=== PATIENT | female | born 1965 ===

== ENCOUNTER 2024-09-29 10:21 | Outpatient (AMB) | payer OTHER, SELFPAY ==
--- OUTSIDE RECORDS SUMMARY | 2023-09-02 05:30 | XMS_ITS ---
Author Organization [facility] Address [address] [place] [address] Care Team Providers Care Rug Cutter Name Role Phone HARISH AGUILAR Unavailable [phone] Allergies Allergen (clinical drug ingredient) Drug/Non Drug Allergy documented on EMR Reaction Allergy Type Onset Date Status Substance with sulfonamide structure and antibacterial mechanism of action (substance) sulpha (uncoded) unknown Allergy Active ciprofloxacin Cipro unknown Drug Allergy Act ashlie nitrofurantoin Macrodantin seeing double Drug Allergy Active REASON FOR VISIT Pt is a 57 y/o NIDDM female who presents to the office today with a concern of a retained foreign body in the right foot. She states that she stepped on fiberglass about 20 years ago. She was treatedat the time and hasnt had any problems until recently when she noticed a painful bump on the ball of the right foot which has started to hurt when she walks. She denies any new injury or increase in activity. There has been no recent treatment. She has no additional pedal concerns today. She deniesany burning, tingling or numbness in her feet. Medications Medication SIG (Take, Route, Fr equency, Duration) Notes Start Date End Date Status Pravastatin Sodium A ctive Singulair Active metFORMIN HCl Active Trulicity Active Social History Tobacco Use: Social History Observation Description Date Details (start date - stop date) Never Smoker NA - NA Tobacco Use/Smoking Question Answer Notes Are you a nonsmoker Problems Problem Type SNOMED Code ICD Code Onset Dates Problem Status W/U Status Risk Notes Problem Congenital valgus deformity of foot (disorder) (64413671) Pes planovalgus (Q66.51) Active confirmed Problem Congenital valgus deformity of foot (disorder) (47480118) Pes planovalgus (Q66.52) Active confirmed Problem Type II diabetes mellitus without complication (276351332) Type 2 diabetes mellitus without complications (E11.9) Active confirmed Encounters Encounter Location Date Provider Diagnosis [facility] [address] [place] [address] 09/02/2023 HARISH AGUILAR Foot pain, right M79 .671 ; Pes planovalgus Q66.51 ; Pes planovalgus Q66.52 and Type 2 diabetes mellitus without complications E11.9 Assessments Encounter Date Diagnosis (ICD Code) Assessment Notes Treatment Notes Treatment Clinical Notes Section Notes 09/02/2023 Foot pain, right (ICD-10 - M79.671) Pt noted relief with sharp debridement of the lesion today. She is reassured that there is no retained foreign body present on exam today. Aperture padding applied. 09/02/2023 Pes planovalgus (ICD-10 - Q66.51) Pt evaluated and the chart is reviewed. The etiology of IPK's is reviewed as well as how her foot structure is contributing to it's development. We reviewed the benefits of realignment with an orthotic as well as the benefit of using a properly fitted supportive shoe/sneaker. Pt has no restriction on activity and may participate as tolerated. I recommend getting her feet measured and into new sneakers before we fit her for an orthotic as she is unsure of her acutal size. She notes her questions to have been addressed to her satisfaction during exam today. 09/02/2023 Pes planovalgus (ICD-10 - Q66.52) as noted above 09/02/2023 Type 2 diabetes mellitus without complications (ICD-10 - E11.9) Diabetic foot care and prevention are reviewed 09/02/2023 Other A total of 30 minutes was spent in both direct and indirect contact with the patient today including evaluating, counseling and developing a podiatric treatment plan as well as indirect management including review of records, coordination of care as needed and documenting in the electronic health record. Greater than 50% of the time was focused on providing counseling and education. Plan Of Treatment Treatment Notes Assessment Notes Foot pain, right Pt noted relief with sharp debridement of the lesion today. She is reassured that there is no retained foreign body present on exam today. Aperture padding applied. Pes planovalgus Pt evaluated and the chart is reviewed. The etiology of IPK's is reviewed as well as how her foot structure is contributing to it's development. We reviewed the benefits of realignment with an orthotic as well as the benefit of using a properly fitted supportive shoe/sneaker. Pt has no restriction on activity and may participate as tolerated. I recommend getting her feet measured and into new sneakers before we fit her for an orthotic as she is unsure of her acutal size. She notes her questions to have been addressed to her satisfaction during exam today. Pes planovalgus as noted above Type 2 diabetes mellitus wit hout complications Diabetic foot care and prevention are reviewed Other A total of 30 minute s was spent in both direct and indirect contact with the patient today including evaluating, counseling and developing a podiatric treatment plan as well as indirect management including review of records, coordination of care as needed and documenting in the electronic health record. Greater than 50% of the time was focused on providing counseling and education. Next Appt Details Follow Up: prn, Reason: Progress Notes * MIKEY MORALESHDOB:1965 (58 yo F)Acc No.[id number]:09/02/2023 Patient: BAILEY GOLDEN Provider: Avery Aguilar DPM :1965 A ge:57 Y S ex:Female Date:09/02/2023 Address:[address] [place] [address] Subjective: * Chief Complaints: * 1 . Pt is a 57 y/o NIDDM female who presents to the office today with a concern of a retained foreign body in the right foot. She states that she stepped on fiberglass about 20 years ago. She was treated at the time and hasnt had any problems until recently when she noticed a painful bump on the ball of the right foot which has started to hurt when she walks. She denies any new injury or increase in activity. There has been no recent treatment. She has no additional pedal concerns today. She denies any burning, tingling or numbness in her feet.. * HPI: D epression Screening: PHQ-2 (2015 Edition) L ittle interest or pleasure in doing things??Not at all F eeling down, depressed, or hopeless? N ot at all T otal Score 0 * ROS: A ll Other Systems: Review of Systems (ROS) S ee PM for details. ? * Medical History: D iabetes mellitus, Hyperlipidemia. * Surgical History: g allbladder , tonsillectomy , hernia . * Hospitalization/Major Diagno stic Procedure: D enies Past Hospitalization. * Social History: T obacco Use: T obacco Use/Smoking A re you a n onsmoker * Medications: T aking Trulicity , Taking metFORMIN HCl , Taking Singulair , Taking Pravastatin Sodium , Medication List reviewed and reconciled with the patient * Allergies: C ipro: unknown - Allergy - Criticality Unknown, Macrodantin: seeing double - Allergy - Criticality Unknown, sulpha: unknown - Allergy - Criticality Unknown. Objective: * Vitals: H bA1c: 6.8, Pain scale:21-10. * Examination: G eneral Examination: GENERAL APPEARANCE: p leasant, well nourished, in no acute distress. FOOT EXAM: L ower Extremity Neurological Exam performed:?Yes F ootwear Evaluation performed: Y es D ate 0 09/02/2023 S ensory testing performed: s ensations normal S ensory and motor testing performed: s trength normal P edal pulse taking performed: 2 + V isual exam of foot performed: Y es V ascular: DORSALIS PEDIS PULSE: 2 /4, bilaterally. POSTERIOR TIBIAL PULSE: 2 /4, bilaterally. CAPILLARY REFILL: i nstantaneous. TEMPERATURE GRADIENT: w ithin normal limits, bilaterally.? HAIR GROWTH: ( +) pedal hair growth B/L. ? N eurologic: MUSCLE POWER: 5 /5, bilaterally. TINELS SIGN: n egative with percussion of the medial and intermediate dorsal cutaneous nerves and tarsal tunnel B/L. VILLEAUX SIGN: n egative with percussion of intermediate and medial dorsal cutaneous nerves and tarsal tunnel, B/L. MULDERS SIGN: n egative with dorsal and lateral compression of interspaces 1-4 B/L. VIBRATORY: i ntact at the 1st MPJ B/L. SHARP SENSATION: l ight touch, intact to all points bilaterally with 5.07 monofilament. D ermatologic: SKIN FINDINGS: N o pedal EEE noted; No open areas or SOI appreciated.. HYPERKERATOSIS: ( +) hard, focal keratotic lesion noted submt 2 on the right foot. There is a central depression in the lesion which is painful with pressure. No associated fluctuance or SOI. Tissues remain intact throughout debridement with no underlying ulceration or abscess noted. I do not appreciate any sign of foreign body or verrucous tissue.. NAIL PATHOLOGY: N ails are unremarkable x 10. ? O rthopedic: GAIT ABNORMALITY: Caleb randle is WNL. FOOT MORPHOLOGY: W eight bearing exam with collapse through the MLA B/L and increased rearfoot valgus rotation B/L. JOINT RANGE OF MOTION: N o pain or crepitus with passive ROM through the ankle, subtalar or MPJ's 1-5 B/L. PAIN ELICITED WITH PALPATION OF: ( +) pain with pressure right submt 2 as noted.. R outine Foot Care: Footwear exam P t is wearing a sandal today with little to no support. Assessment: * Assessment: 1. F oot pain, right - M79.671 (Primary) 2 . P es planovalgus - Q66.51 3 . P es planovalgus - Q66.52 4 . T ype 2 diabetes mellitus without complications - E11.9 Plan: * Treatment: 2. P es planovalgus Notes: Pt evaluated and the chart is reviewed. The etiology of IPK's is reviewed as well as how her foot structure is contributing to it's development. We reviewed the benefits of realignment with an orthotic as well as the benefit of using a properly fitted supportive shoe/sneaker. Pt has no restriction on activity and may participate as tolerated. I recommend getting her feet measured and into new sneakers before we fit her for an orthotic as she is unsure of her acutal size. She notes her questions to have been addressed to her satisfaction during exam today. 3. P es planovalgus Notes: as noted above 4. T ype 2 diabetes mellitus without complications Notes: Diabetic foot care and prevention are reviewed 5. O thers Notes: A total of 30 minutes was spent in both direct and indirect contact with the patient today including evaluating, counseling and developing a podiatric treatment plan as well as indirect management including review of records, coordination of care as needed and documenting in the electronic health record. Greater than 50% of the time was focused on providing counseling and education. ? * Procedure Codes: G 8510 NEG SCR D PT NOT ELIG F/U/PLN DOC, G9903 Pt scrn tbco id as non user, 3288F FALL RISK ASSESSMENT DOCD * Preventive Medicine: Diabetic counseling: F oot care and prevention D iabetic footcare and prevention are reviewed with the patient. They are cautioned against barefoot walking and encouraged to perform nightly foot checks. No cream, lotion or ointment to be applied in between the toes. Proper foot wear and shoe fit are reviewed. They are encouraged to keep feet clean and dry. Contact the office should any signs of infection, ulceration or other concerning skin changes present. Pt indicates understanding of instructions and notes all questions to have been answered to their satisfaction today. ELGIN Screening: F alls : Screening for future fall risk Have you had two or more falls in the past year? N o Have you had any falls with injury in the past year? N o Assessment Performed: y es Date: 09/02/2023 Screenings: F ALL RISK SCREENING Fall Risk Assessment: N o falls in the past year Assessment: P erformed Balance-gait assessment: O bserved transfer and walking * Follow Up: p rn * Billing Information: * Visit Code: 39342 Office Visit, New Pt., Level 3. * Procedure Codes: G8510 NEG SCR D PT NOT ELIG F/U/PLN DOC. G9903 Pt scrn tbco id as non user. 3288F FALL RISK ASSESSMENT DOCD. * Electronic signature of BEBE AGUILAR DPM on 09/29/2024 at 11:16 AM EDT Sign off status: Pending * Provider: Avery Aguilar DPM Date: 09/02/2023 Generated for Mary mcfarlane/Kita/eTransmitting on: 09/29/2024 11:16 AM EDT History and Physical Notes * HPI (History of Present Illness) Category Sub-Category Detail Notes Category Not es Depression Screening PHQ-2 (2015 Edition) Little interest or pleasure in doing things?: Not at all Feeling down, depressed, or hopeless?: N ot at all Total Score: 0 Examination Category Sub-Category Detail Notes Category Not es Dermatologic SKIN FINDINGS: No pedal EEE not ed; No open areas or SOI appreciated. NAIL PATHOLOGY: Nails are unremarkab le x 10 HYPERKERATOSIS: (+) hard, focal bandar totic lesion noted submt 2 on the right foot. There is a central depression in the lesion which is painful with pressure. No associated fluctuance or SOI. Tissues remain intact throughout debridement with no underlying ulceration or abscess noted. I do not appreciate any sign of foreign body or verrucous tissue. Neurologic MUSCLE POWER: 5/5, bilaterally SHARP SENSATION: light touch, intact to all points bilaterally with 5.07 monofilament TINELS SIGN: negative with percus marybel of the medial and intermediate dorsal cutaneous nerves and tarsal tunnel B/L VILLEAUX SIGN: negative with percus marybel of intermediate and medial dorsal cutaneous nerves and tarsal tunnel, B/L MULDERS SIGN: negative with dorsal and lateral compression of interspaces 1-4 B/L VIBRATORY: intact at the 1st MP J B/L Orthopedic GAIT ABNORMALITY: Gait is WNL FOOT MORPHOLOGY: Weight bearing exam with collapse through the MLA B/L and increased rearfoot valgus rotation B/L JOINT RANGE OF MOTION: No pain or crepit us with passive ROM through the ankle, subtalar or MPJ's 1-5 B/L PAIN ELICITED WITH PALPATION OF: (+) lamberto n with pressure right submt 2 as noted. Vascular DORSALIS PEDIS PULSE: 2/4, bilaterally CAPILLARY REFILL: instantaneous TEMPERATURE GRADIENT: within normal limi ts, bilaterally POSTERIOR TIBIAL PULSE: 2/4, bilaterally HAIR GROWTH: (+) pedal hair growt h B/L General Examination GENERAL APPEARANCE: pleasant , well nourished, in no acute distress FOOT EXAM: Lower Extremity Neurological Exa m performed:: Yes Footwear Evaluation performed:: Yes Date: 09/02/2023 Sensory testing performed:: sensations n ormal Sensory and motor testing performed:: [facility] normal Pedal pulse taking performed:: 2+ Visual exam of foot performed:: Yes Routine Foot Care Footwear exam Pt is wearing a sandal today with little to no support
--- OUTSIDE RECORDS SUMMARY | 2023-12-18 08:15 | XMS_ITS ---
Author Organization [facility] [address] Address [address] [place] [address] Care Team Providers Care Document Management Consultant Name Role Phone URSZULA LONG Unavailable [phone] Encounters Encounter Location Date Provider Diagnosis [facility] [address] [place] [address] 12/18/2023 URSZULA LONG Plan Of Treatment No Information Progress Notes * Hermila HARDYhDOB:1965 (58 yo F)Acc No.[id number]:12/18/2023 CPE Patient: Adry GOLDEN Provider: Lanie LONG MD :1965 A ge:58 Y S ex:Female Date:12/18/2023 [facility] Subjective: * Chief Complaints: * * Medical History: Objective: * Vitals: Assessment: Plan: * Treatment: * Images: Billing Information: * Visit Code: * Procedure Codes: Care Plan Details* * Electronic signature of WILFRED LONG on 09/29/2024 at 11:16 AM EDT Sign off status: Pending * Provider: Lanie LONG MD Date: 1 Generated for Mary mcfarlane/Kita/eTjasmynsmitting on: 0 09/29/2024 11:16 AM EDT
--- NOTE | 2024-09-29 10:41 | A.OFFVIS_ITS ---
Vital Signs 09/29/24 10:43 Height 5 ft 5 in Weight 162 lb 8 oz BMI 27.0 BP 114/68 Blood Pressure Location Rt brachial Position Sitting Pulse 68 Pulse Source Pulse Oximeter Pulse Oximetry (%) 97 Oxygen Delivery Method Room Air Intake Visit Reasons: Pulmonary Hypertension Allergies ciprofloxacin Allergy (Intermediate, Verified 09/29/24 10:50) Unknown nitrofurantoin (From Macrobid) Allergy (Intermediate, Verified 09/29/24 10:50) Unknown Sulfa (Sulfonamide Antibiotics) Allergy (Intermediate, Verified 09/29/24 10:48) Photosensitivity HPI HPI Pulmonary Hypertension: Details: Shila is a pleasant 58-year-old female, former 10 pack year smoker, with underlying asthma, DMII. She was referred by PCP for pulmonary evaluation after chest CT revealed mildly enlarged pulmonary artery suggestive of pulmonary hypertension. Recent imaging studies, including a CT scan 2024, revealed mild dilation of the pulmonary artery and mild cardiomegaly. The patient has mild pulmonary scarring, likely due to past infections and environmental exposures.The echocardiogram was unable to accurately measure pulmonary artery pressures otherwise unremarkable. She denies prior h/o CTD, PE, MANUELA symptoms or ILD. The patient has a history of bronchitis, pneumonia, and asthma, which she attributes to growing up in a smoking household. Asthma diagnosed in childhood, exacerbated by exercise and cold air, however minimal symptoms and continues to live an active lifestyle not limited by respiratory symptoms. She has ICS/LABA and albuterol however does not use consistently. At this time denies any respiratory symptoms. She smoked from the age of 12 to 23 but has not smoked since. She has a family history of heart disease and vascular issues, particularly in her father and reports mother with sarcoidosis. [facility], [facility] Social History (Updated 09/29/24 @ 10:46 by Zaida Avendaño CMA) Patient Tobacco Use Status: Former Tobacco user Review of Systems Const Denies chills, Denies excessive sweating, Denies fever(s), Denies headache(s) and Denies night sweats Eyes Denies dry eyes, Denies irritation and Denies itchy eyes ENT Reports Normal hearing present, Denies headache(s), Denies nasal congestion, Denies nasal discharge, Denies post nasal drip and Denies sore throat Card Denies chest pain, Denies chest pain at rest, Denies chest pain with activity, Denies claudication, Denies leg edema, Denies dyspnea, Denies dyspnea on exertion, Denies orthopnea and Denies paroxysmal nocturnal dyspnea Resp Denies chest congestion, Denies cough, Denies excessive phlegm production, Denies pain on inspiration, Denies pain with cough, Denies dyspnea, Denies dyspnea on exertion, Denies stridor and Denies wheezing Musc Denies myalgias Neuro Reports Normal hearing present and Denies headache(s) Endo Denies excessive sweating Rishi/Lymph Denies lymphadenopathy Aller/Immun Denies itchy eyes, Denies seasonal rhinorrhea and Denies wheezing Physical Exam Vital Signs: Last Vital Signs Pulse 68 09/29/24 10:43 BP 114/68 09/29/24 10:43 Pulse Ox 97 09/29/24 10:43 Oxygen Delivery Method Room Air 09/29/24 10:43 BMI result Body Mass Index 27.0 Const General: cooperative, healthy appearing, comfortable, no acute distress, well developed and alert Orientation/consciousness: patient oriented x3 Limitations: no limitations HEENT Head: Yes normal to inspection, Yes normocephalic and Yes atraumatic Ears: hearing grossly normal bilaterally and external ears normal Eyes General: appearance normal, both eyes and all related structures Eyelids: Yes eyelids normal Sclerae: sclerae normal EOM: EOMs intact bilaterally Neck Neck: Yes normal visual inspection and Yes no lymphadenopathy Lymphatic: no lymphadenopathy noted Chest Chest palpation & inspection: normal inspection of the chest Resp Effort & Inspection: normal respiratory effort, able to speak in complete sentences, no audible wheezes, no cough, no stridor, not tachypneic, no tripod positioning and no use of accessory muscles Auscultation: clear to auscultation bilaterally Cardio Jugular venous distension: no JVD Rate: regular rate Rhythm: regular rhythm Skin Other: warm, dry General skin exam: no rashes or lesions noted Neuro General: patient oriented x3 Cranial nerves: Yes Normal hearing present Cognition (Neuro): normal cognition Gait exam (Neuro): Normal gait present Extrem General: Yes normal to inspection, Yes capillary refill normal, Yes no clubbing, cyanosis or edema and Yes no pedal edema Psych Appearance: grossly normal and well kempt Speech and movement: Normal speech and movement present and Clear speech present Affect: normal affect Attitude: cooperative Thought process: Normal thought process present Thought content: Normal thought content present Insight: Good insight present (Psych) Judgement: Good judgement present (Psych) Results Reviewed Results Reviewed: RESULT: CT Chest W/O Contrast PROCEDURE: CT Chest W/O Contrast CLINICAL INDICATION: 58 years old Female with shortness of breath. Six month follow-up parenchymal scarring versus atelectasis. TECHNIQUE: High resolution technique utilized. Helical 3 mm axial images are obtained of the chest. Coronal and sagittal reformations performed. In addition, 1.5 mm high resolution images are obtained every 20 mm in inspiration and expiration as well as with the patient prone in inspiration. Weight-based protocol using automatic tube modulation utilized to optimize exposure parameters. CTDIvol Body: 3.39 mGy, DLP Body: 474 mGy*cm. COMPARISON: Similar unenhanced CT chest of August 30, 2023. FINDINGS: Trachea and airways: Patent without evidence of tracheal or endobronchial lesion. Lungs and pleura: Mild linear scarring again seen in the bilateral upper lobes lobes and the superior segment of the RIGHT lower lobe. Mild to moderate dependent atelectasis resolves completely upon prone imaging. No significant findings on expiratory imaging. No nodules or masses. No evidence of bronchiectasis. No pleural effusion or pneumothorax. Mediastinum and dayo: No mass or hematoma. Increased number of normal-sized RIGHT paratracheal prevascular and subcarinal lymph nodes unchanged.. No esophageal abnormality. Heart: Very mild cardiomegaly. No pericardial effusion. Mild coronary artery calcifications. Aorta: No aortic aneurysm. Pulmonary arteries: Mild dilatation of the main pulmonary artery up to 3 cm Kumpe seen with pulmonary arterial hypertension. Chest wall soft tissues: Coarse calcification posterior to the LEFT humeral head consistent with calcific tendinopathy of bursitis unchanged. Marker clip in the upper inner quadrant of the LEFT breast from prior benign biopsy. Breast with dense parenchymal tissue bilaterally. Upper abdomen: Surgical clips in the gallbladder fossa from prior cholecystectomy. Bones: No acute abnormalities, no suspicious osseous lesions. IMPRESSION: 1. Mild linear scarring in the bilateral upper lobes and the superior segment of the RIGHT lower lobe probably postinfectious. No evidence of chronic interstitial lung disease. 2. Mild coronary artery calcifications. Very mild cardiomegaly. 3. Mild dilatation of the main pulmonary artery which can be seen with pulmon juan arterial hypertension. 4. Prior cholecystectomy. Thank you for allowing me to participate in the care of this patient WSN: [id number] Ordering Physician: Tae Schulz Reason For Exam R93.89 Signature Line Dictated By: Augustine Eaton MD Dictated Date/Time: 07/07/24 9:38 am Reviewed By: Augustine Eaton MD Signed By: Augustine Eaton MD Signed Date/Time: 07/07/24 9:38 am Transcribed By: PAKO Transcribed Date/Time: 07/07/24 9:20 am Echo Complete-Doppler, Colorflow, M-Mode Transthoracic Echocardiography Report (TTE) Patient Demographics Patient Name BAILEY MORALES Date of Study 08/20/2024 Corporate Gender Female Facility Race Ethnicity Date of 1965 Height: 65 inches Age 58 year(s) Weight: 155 pounds Accession Number [id number] BSA: 1.78 m2 Room Number BMI: 25.79 kg/m2 Referring Physician Zeus De La Cruz Interpreting Hans Ellis MD, MD Physician Warble Saw Operator Dillan Urbina [facility] [[email or web address]] Indications Pulmonary hypertension. Clinical History h/o Pneumonia r/o Pulmonary DM type 2 Study Data Type of Study TTE procedure:Echo Complete-Doppler, Colorflow, M-Mode. Study Date08/20/2024 Start Time: 08:44 AM Study Location: 3300 Adult Echo Study Status: Echo lab Patient Status: Routine Technical Quality: Adequate Blood Pressure:118/60 mmHg EKG: Normal sinus rhythm HR: 62 bpm 2D Measurements LV Diastolic Dimension: 3.6 cm LV Systolic Dimension: 2.3 cm LV Septum Diastolic: 1.2 cm LV PW Diastolic: 1.2 cm AO Root Dimension: 3.4 cm LA Dimension: 3.3 cm LA ESV (BP):34 ml LVOT Stroke Volume: 80.56 ml LA ESV Index: 19 ml/m2 Stroke Volume Index45.26 ml/m2 LVOT: 2.3 cm Cardiac Index:2.8 l/min/m2 Ascending Aorta:3.1 cm Doppler Measurements AV Peak Velocity: 102 cm/s MV Peak E-Wave: 52.8 cm/s AV Peak Gradient: 4.16 mmHg MV Peak A-Wave: 46.4 cm/s AV Mean Gradient: 2 mmHg MV E/A Ratio: 1.14 AV VTI:21.1 cm LVOT Peak Velocity: 82.7 cm/s LVOT VTI19.4 cm MV Deceleration Time: 169 msec AV Area (Continuity):3.82 cm2 TR Velocity:119 cm/s PV Peak Velocity: 77.4 cm/s TR Gradient:5.66 mmHg PV Peak Gradient: 2.4 mmHg E' Septal Velocity: 8.44 cm/s E' Lateral Velocity: 7.02 cm/s E/Med E':[id number] E/Lat E':[id number] Cardiac Anatomy Left Ventricle/Interventricular Septum The left ventricular size is normal. The left ventricular wall thickness is mildly increased. The LV systolic function is normal. The left ventricular ejection fraction is 60-65 %. There are no regional wall motion abnormalities. Diastolic function appears normal. Left Atrium/Interatrial Septum The left atrium is normal in size. Aortic Valve The aortic valve is trileaflet. There is no aortic stenosis. There is no aortic regurgitation. Mitral Valve The mitral valve appears normal. There is trace mitral regurgitation. Aorta The ascending aorta and aortic root are normal in size. Right Ventricle The right ventricle is normal in size and function. Right Atrium The right atrium is normal in size. Pulmonic Valve The pulmonic valve is poorly visualized. Tricuspid Valve The tricuspid valve appears normal. There is trace tricuspid valve regurgitation. Pumonary Artery An accurate pulmonary artery pressure could not be obtained. Venous Structures The inferior vena cava appears normal. Pericardium/Extracardiac There is no significant pericardial effusion. Summary 1) The LV systolic function is normal. The left ventricular ejection fraction is 60-65 %. There are no regional wall motion abnormalities. 2) The left ventricular wall thickness is mildly increased. 3) The right ventricle is normal in size and function. 4) No significant valvular abnormalities. Comparison Comparison is made to the study of August 23, 2023. There is no significant change. 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 Additionally, will acquire the actual CT images from [facility] to assess the extent of pulmonary scarring and compare with previous studies. The patient will be monitored for symptoms of pulmonary hypertension, and a repeat echocardiogram may be considered in three to six months to better visualize the pulmonary arteries and estimate pressures. If the patient becomes symptomatic, a right heart catheterization may be considered for accurate measurement of pulmonary pressures. At this time, patient reports minimal respiratory symptoms without the need for any respiratory medications and activity is not limited by respiratory symptoms. The patient is advised to monitor for any worsening of respiratory symptoms, such as increased dyspnea or cough, and to contact the [facility] if these occur. Follow-up is scheduled in 8 to 10 weeks to review all obtained records and reassess the patient's condition. All questions were answered and patient is in agreement of plan. 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
[2024-09-29 10:43] VITALS: BP 114/68; PULSE 68; O2SAT 97; BMI 27.0
--- OUTSIDE RECORDS SUMMARY | 2024-09-29 11:16 | XMS_ITS | Clinical Summary ---
Author Organization [facility] [address] [place] [address] [place] [phone] Phone Care Team Providers Care Sample Tester Name Role Phone Lex Hutchins MD Primary Care Provider [phone] Allergies Active Allergy Reactions Criticality Noted Date Comments Ciprofloxacin-Hydrocortisone 022 Sulfa (Sulfonamide Antibiotics) 08/03 Medications montelukast (SINGULAIR) 10 mg tablet Take 1 tablet (10 mg total) by mouth 1 (one) time each day. Active pravastatin (PRAVACHOL) 40 mg tablet Take 1 tablet (40 mg total) by mouth 1 (one) time each day. Active docusate sodium (COLACE) 100 mg capsule Take 1 capsule (100 mg total) by mouth 1 (one) time each day. 07/12/19 21 Active fluticasone propionate (FLONASE) 50 mcg/actuation nasal spray Administer 1 spray into each nostril 1 (one) time each day. 07/20/19 24 Active metFORMIN XR (GLUCOPHAGE-X R) 500 mg 24 hr tablet Do not crush, chew, or split.TAKE 1 TABLET BY MOUTH EVERY MORNING, AND 2 TABLETS BY MOUTH EVERY EVENING. 270 tablet 1 09/19/19 25 Active Trulicity 0.75 mg/0.5 mL pen injector injection Inject 0.5 mL (0.75 mg total) under the skin every 7 (seven) days. 6 mL 3 09/19/19 25 Active metFORMIN XR (GLUCOPHAGE-X R) 500 mg 24 hr tablet TAKE 1 TABLET BY MOUTH EVERY MORNING AND 2 TABLETS BY MOUTH EVERY NIGHT 270 tablet 1 05/15/19 25 025 Discontinued metFORMIN XR (GLUCOPHAGE-X R) 500 mg 24 hr tablet TAKE 1 TABLET BY MOUTH EVERY MORNING AND 2 TABLETS BY MOUTH EVERY NIGHT 025 Discontinued(Du plicate order) methenamine hippurate (HIPREX) 1 gram tablet Take 1 tablet (1 g total) by mouth 1 (one) time each day. TAKE WITH VITAMINC OR CRANBERRY. STOP IF ON ANY OTHER ANTIBIOTICS 025 Discontinued(Di scontinued by another clinician) fexofenadine (VALENCIA) 180 mg tablet Take 1 tablet (180 mg total) by mouth 1 (one) time each day. 08/22/19 24 025 Discontinued(Al ternate therapy) Trulicity 0.75 mg/0.5 mL pen injector injection Inject 0.5 mL (0.75 mg total) under the skin every 7 (seven) days. 025 Discontinued(Re order) metFORMIN XR (GLUCOPHAGE-X R) 500 mg 24 hr tablet TAKE 1 TABLET BY MOUTH EVERY MORNING, AND 2 TABLETS BY MOUTH EVERY EVENING. 90 tablet 09/17/19 25 025 Discontinued(Re order) Active Problems Problem Noted Date Diagnosed Date Diabetes mellitus, type II (CMS/[facility] V24, CMS/[facility] V28) 05/01/2022 Asthma 05/01/2022 Allergic rhinitis 05/01/2022 Diverticulosis 05/01/2022 Hyperlipemia 05/01/2022 Irritable bowel syndrome 05/01/2022 Lumbar stenosis 05/01/2022 Encounters Date Type Department Care Team Description 09/18/2024 1:00 PM EDT Office Visit Endocrinology [address] [phone] Gia Barbour PA Type 2 diabetes mellitus with other specified complication, unspecified whether residential insulin use (CMS/HCC V24, CMS/[facility] V28) (Primary Dx) from Last 3 Months Surgical History Surgery Date Site/Laterality Comments UMBILICAL HERNIA REPAIR PROCEDURE: LAP UMBILICAL HERNIA REPAIR; COMMENT: [facility] no complications CHOLECYSTECTOMY PROCEDURE: HISTORICAL CHOLECYSTECTOMY; COMMENT: about 30 yrs ago, [facility] TONSILLECTOMY PROCEDURE: HISTORICAL TONSILLECTOMY; COMMENT: 15 yrs old ADENOIDECTOMY PROCEDURE: HISTORICAL ADENOIDECTOMY Medical History Medical History Date Comments IBS (irritable bowel syndrome) D X:IBS (irritable bowel syndrome) Type 2 diabetes mellitus wit hout complications (CMS/HCC V24, CMS/HCC V28) DX:Type 2 horacio betes mellitus without complications ([facility]) Mild intermittent asthma, uncomplicated DX:Mild intermittent asthma, uncomplicated Allergic rhinitis due to pollen DX:Allergic rhinitis due to pollen Diverticulosis DX:Diverticulosi s Family History Medical History Relation Name Comments Diabetes Brother 1 Diabetes Brother 2 Coronary artery disease Father Diabetes Father Relation Name Status Comments Brother 1 Alive Brother 2 Alive Brother 3 Alive Father Maternal Grandfather Maternal Grandmother Mother Paternal Grandfather Paternal Grandmother Social History Tobacco Use Types Packs/Day Years Used Date Smoking Tobacco: Former Smokeless Tobacco: Never Tobacco Cessation:Counseling Given: Not Answered Alcohol Use Standard Drinks/Week Comments Yes 0 (1 standard drink = 0.6 oz pur e alcohol) Comments No Sex and Gender Information Value Date Recorded Sex Assigned at Not on file Legal Sex Female 10:14 AM EST Gender Identity Not on file Sexual Orientation Not on file Obstetrics History Last Filed Vital Signs Vital Sign Reading Time Taken Comments Blood Pressure 110/64 09/18/2024 1:19 PM EDT Pulse 77 09/18/2024 1:19 PM EDT Temperature 36.2 C (97.1 F) 09/18/2024 1:19 PM EDT Respiratory Rate - - Oxygen Saturation - - Inhaled Oxygen Concentration - - Weight 73.2 kg (161 lb 6.4 oz) 09/18/2024 1:19 P M EDT Height 165.1 cm (5' 5 ) 09/18/2024 1:19 PM EDT Body Mass Index 26.86 09/18/2024 1:19 PM EDT Plan of Treatment Upcoming Encounters Date Type Department Care Team (Late st Contact Info) Description 02/18/2025 3:30 PM EST Office Visit Endocrinology - [address] [phone] Gia Barbour PA [address] [place] [address] Health Maintenance Due Date Last Done Comments Breast Cancer Screening 1965 Diabetes: Annual Foot Exam 11/17/1973 Pneumococcal Vaccine: 50+ Years (1 of 2 - PCV) 11/17/1982 Cervical Cancer Screening: Pap Smear 11/17/1984 Colorectal Cancer Screening: Colonoscopy 01/30/2022 HIV Screening 01/30/2022 Hepatitis C Screening 01/30/2022 Social Influencers of Health Screening 01/30/2022 COVID-19 Vaccine ( season) 2023 03/09/2022, 01/30/2021, 06/25/2020, Additional history exists RSV Immunization Adult Patients (1 - Risk 60-74 years 1-dose series) 2023 Depression Screening 03/04/2024 Influenza Vaccine (#1) 2024 01/17/2021 Diabetes: Annual Retina Eye Exam 11/11/2024 11/12/2023 Diabetes: Blood Sugar Control Test (HGBA1C) 03/21/2025 09/18/2024, 11/13/2023 Diabetes: Annual Urine Albumin-Creatinine Ratio (uACR) 09/18/2025 09/18/2024 Diabetes: Annual GFR (Glomerular Filtration Rate) 09/18/2025 09/18/2024, 11/13/2023 Cholesterol Screening (Lipid Panel) 09/18/2029 09/18/2024, 11/13/2023 DTaP,Tdap,and Td Vaccines (2 - Td or Tdap) 01/17/2031 01/17/2021 Zoster Vaccines Completed 04/08/2021, 01/30/2021 HIB Vaccines Aged Out No longer eligi ble based on patient's age to complete this topic HPV Vaccines Aged Out No longer eligi ble based on patient's age to complete this topic Hepatitis A Vaccines Aged Out No long er eligible based on patient's age to complete this topic Hepatitis B Vaccines Aged Out No long er eligible based on patient's age to complete this topic IPV Vaccines Aged Out No longer eligi ble based on patient's age to complete this topic MMR Vaccines Aged Out No longer eligi ble based on patient's age to complete this topic Meningococcal ACWY Vaccine Aged Out N o longer eligible based on patient's age to complete this topic Meningococcal B Vaccine Aged Out No l onger eligible based on patient's age to complete this topic RSV Immunization Patients Under 20 months Aged Out No longer eligible based on patient's age to complete this topic Varicella Vaccines Aged Out No longer eligible based on patient's age to complete this topic Procedures Procedure Name Priority Date/Time Associated Diagnosis Comments HEMOGLOBIN A1C Routine 09/18/2024 1:52 PM EDT Type 2 diabetes mellitus with other specified complication, unspecified whether residential insulin use ([facility] V24, [facility] V28) BASIC METABOLIC PANEL Routine 09/18/2024 1:52 PM EDT Type 2 diabetes mellitus with other specified complication, unspecified whether residential insulin use ([facility] V24, [facility] V28) LIPID PANEL WITH REFLEX TO DIRECT LDL Routine 09/18/2024 1:52 PM EDT Type 2 diabetes mellitus with other specified complication, unspecified whether residential insulin use ([facility] V24, [facility] V28) MICROALBUMIN CREATININE URINE RATIO Routine 09/18/2024 1:52 PM EDT Type 2 diabetes mellitus with other specified complication, unspecified whether residential insulin use ([facility] V24, [facility] V28) POC GLUCOSE Routine 09/18/2024 1:14 PM EDT Type 2 diabetes mellitus with other specified complication, unspecified whether terminologist insulin use ([facility] V24, [facility] V28) from Last 3 Months Results * (ABNORMAL) Lipid panel with reflex to direct LDL (09/18/2024 1:52 PM EDT) Cholesterol 162 0 - 200 mg/dL LAB CHEMISTRY METHOD 09/18/2024 5:38 PM EDT [facility] Triglycerides 213(H) 0 - 150 mg/dL LAB CHEMISTRY METHOD 09/18/2024 5:38 PM EDT [facility] HDL 53 >=40 mg/dL LAB CHEMISTRY METHOD 09/18/2024 5:38 PM EDT [facility] LDL Calculated 66 0 - 100 mg/dL LAB CHEMISTRY METHOD 09/18/2024 5:38 PM EDT [facility] VLDL Cholesterol Danial 42.6 mg/dL LAB CHEMISTRY METHOD 09/18/2024 5:38 PM EDT [facility] Non HDL Chol. (LDL+VLDL) 109 <145 mg/dL LAB CHEMISTRY METHOD 09/18/2024 5:38 PM EDT [facility] Chol/HDL Ratio 3.1 0.0 - 4.4 LAB CHEMISTRY METHOD 09/18/2024 5:38 PM EDT [facility] Blood Venous blood specimen / Unknown Venipuncture / Unknown 09/18/2024 1:52 PM EDT 09/18/2024 1:52 PM EDT us Gia RODRIGES LAB BLOOD ORDERABLES Final Result Performing Organization Address City/[facility]/ZIP Co de Phone Number [facility] [address] [place] [address], [place] [phone] * Microalbumin creatinine urine ratio (09/18/2024 1:52 PM EDT) Creatinine, Urine 46.0 mg/dL LAB CHEMISTRY METHOD 09/18/2024 6:46 PM EDT [facility] Microalb, Ur <5.0 0.0 - 29.0 mg/L LAB CHEMISTRY METHOD 09/18/2024 6:46 PM EDT [facility] Microalb/Creat Ratio <11 <30 mg/g creat LAB CHEMISTRY METHOD 09/18/2024 6:46 PM EDT [facility] Urine Urine specimen from urethra / Unknown Non-blood Collection / Unknown 09/18/2024 1:52 PM EDT 09/18/2024 1:52 PM EDT us Gia RODRIGES LAB URINE ORDERABLES Final Result Performing Organization Address [facility]/ZIP Co de Phone Number [facility] [address] [place] [address], [place] [phone] * (ABNORMAL) Hemoglobin A1c (09/18/2024 1:52 PM EDT) [facility] Hemoglobin A1C 6.9(H) <6.5 % LAB CHEMISTRY METHOD 09/18/2024 10:52 PM EDT [facility] Mean Bld Glu Estim. 151 mg/dL LAB CHEMISTRY METHOD 09/18/2024 10:52 PM EDT [facility] Blood Venous blood specimen / Unknown Venipuncture / Unknown 09/18/2024 1:52 PM EDT 09/18/2024 1:52 PM EDT Gia RODRIGES LAB BLOOD ORDERABLES Final Result [facility] [address] [place] [address], * (ABNORMAL) Basic metabolic panel (09/18/2024 1:52 PM EDT) [facility] Sodium 139 133 - 145 mmol/L LAB CHEMISTRY METHOD 09/18/2024 5:36 PM EDT [facility] Potassium 4.0 3.5 - 5.5 mmol/L LAB CHEMISTRY METHOD 09/18/2024 5:36 PM T [facility] Chloride 102 96 - 110 mmol/L LAB CHEMISTRY METHOD 09/18/2024 5:36 PM EDT [facility] CO2 32 21 - 32 mmol/L LAB CHEMISTRY METHOD 09/18/2024 5:36 PM EDT [facility] Anion Gap 5 3 - 11 LAB CHEMISTRY METHOD 09/18/2024 5:36 PM [facility] Glucose 126(H) 70 - 100 mg/dL LAB CHEMISTRY METHOD 09/18/2024 5:36 PM EDT [facility] BUN 22 5 - 25 mg/dL LAB CHEMISTRY METHOD 09/18/2024 5:36 PM EDT [facility] Creatinine 0.88 0.50 - 1.10 mg/dL LAB CHEMISTRY METHOD 09/18/2024 5:36 PM EDT [facility] eGFR 75 >=60 mL/min/1. 73m2 LAB CHEMISTRY METHOD 09/18/2024 5:36 PM EDT [facility] Comment:Calculation based on the Chronic Kidney Disease Epidemiology Collaboration (CKD-EPI) equation refit without adjustment for race. BUN/Creatinine Ratio 25.0 LAB CHEMISTRY METHOD 09/18/2024 5:36 PM EDT [facility] Calcium 9.5 8.5 - 10.5 mg/dL LAB CHEMISTRY METHOD 09/18/2024 5:36 PM EDT [facility] Blood Venous blood specimen / Unknown Venipuncture / Unknown 09/18/2024 1:52 PM EDT 09/18/2024 1:52 PM EDT us Gia RODRIGES LAB BLOOD ORDERABLES Final Result [facility] [address] [place] [address], * POC glucose manually resulted (09/18/2024 1:14 PM EDT) Glucose POC 163 mg/dL Comment:non fasting Blood Capillary blood specimen / Unknown 09/18/2024 1:14 PM EDT Gia RODRIGES POINT OF CARE TEST ENTER/ED IT ORDERABLES Final Result from Last [address] [facility] Care Teams Sample Tester Relationship Specialty Start Date End Date Lex Hutchins MD [address] [place] [address] PCP - General Internal Medicine 09/18/24
--- OUTSIDE RECORDS SUMMARY | 2024-09-29 11:16 | XMS_ITS | Patient Health Record ---
Author Organization [facility] Address [address] [place] [address] Care Team Providers Care Survey Technician Name Role Phone Tae Schulz MD Primary Care Provider Unavail able JusticeSharath ray Unavailable [phone] Allergies Allergen (clinical drug ingredient) Drug/Non Drug Allergy documented on EMR Reaction Allergy Type Onset Date Status tree, mold, cats, dog (uncoded) Unknown Allergy Active sulfamethoxazole / trimethoprim Bactrim double vision Drug Allergy Active Reason For Referral No Information Medications Medication SIG (Take, Route, Frequency, Duration) Notes Start Date End Date Status Pravastatin Sodium 20 MG Oral; Duration: 30 Active Fluticasone Propionate 50 MCG/ACT Nasal; Duration: 30 Active Montelukast Sodium 10 MG Oral; Duration: 30 Active metFORMIN HCl ER 500 MG Oral; Duration: 30 Active Social History Tobacco Use: Social History Observation Description Date Details (start date - stop date) Former Smoker NA - NA Tobacco Use/Smoking Question Answer Notes Are you a: former smoker When did you stop smoking? 8 years ago Additional Findings: Tobacco Non-User Ex-heavy c igarette smoker (20-30/day) Alcohol Screen Question Answer Notes Did you have a drink containing alcohol in the p ast year? Yes Points 0 Interpretation Negative Tobacco use other than smoking: Question Answer Notes Are you an other tobacco user? No Problems Problem Type SNOMED Code ICD Code Onset Dates Problem Status W/U Status Risk Notes Problem Type II diabetes mellitus without complication (901438529) Type 2 diabetes mellitus without complications (E11.9) Active confirmed Plan Of Treatment No Information Insurance Providers Payer Name Payer Address Payer Phone Subscriber Number Group Number Insured Name Patient Relationship to Insured Coverage Start Date Coverage End Date Cigna [address] [place] [phone] [id number] Adry Verde Self - patient is the insured Medical (General) History Medical History History ICD Code asthma Back,Hip,and Knee pain Diabetic Gall bladder problems Raynauds syndrome chronic sinusitis Chicken pox Surgical History Surgery Date(Month/Year) gall bladder 1993
--- OUTSIDE RECORDS SUMMARY | 2024-09-29 11:17 | XMS_ITS | Data Portability ---
Author Organization ANTELMO Trammell [facility], [address] Address [address] [place] [address] Care Team Providers Care Supervisor Shaving And Splitting Name Role Phone EMILY LEONARDO Primary Care Provider Assessment No assessment recorded. Plan of Treatment Reminders Order Date Submit Date Provider Last Modified By Organization Details Last Modified Time Details Appointments None recorded. Lab None recorded. Referral None recorded. Procedures None recorded. Surgeries None recorded. Imaging None recorded. Medication Orders albuterol sulfate HFA 90 mcg/actuati on aerosol inhaler 2023 [facility] #[id number], [address], [place], [id number], 4 14:39:06 benzonatate 200 mg capsule 2023 [facility] #55461, [address], [place], [id number], 4 14:39:10 prednisone 20 mg tablet 2023 [facility] #69039, [address], [place], [id number], 4 14:39:11 Allergy Relief (fluticason e) 50 mcg/actuati on nasal spray,suspe nsion 2023 [facility] #09495, [address], [place], [id number], 4 14:39:04 prednisone 10 mg tablet [address] [facility] #73470, [address] [place] [address], [id number], 4 11:25:55 permethrin 5 % topical cream [address] [facility] #79964, [address] [place] [address], [id number], 4 11:26:06 triamcinolo ne acetonide 0.1 % topical cream 2022 023 [facility] #1130, [address] [place] [address], [id number], 3 18:50:33 hydroxyzine HCl 25 mg tablet 2022 023 [facility] #1130, [address] [place] [address], [id number], 3 18:50:33 prednisone 10 mg tablet [address] [facility] #99362, [address] [place] [address], [id number], 4 11:25:55 hydroxyzine HCl 25 mg tablet 2022 023 [facility] #76181, [address] [place] [address], [id number], 3 13:07:30 Patient TargetsNo targets recorded. Patient Instructions Encounter Date Encounter Id Patient Instructions Last Modified By Organization Details Last Modified Time 08/11/2022 [id number] hives: care instructions [email or web address] Not available 08/11/2022 13:07:22 Get plenty of rest. Drink plenty of fluids/stay hydrated. May use OTC oral antihistamines such as benadryl, Claritin, zyrtec, to help relieve the itching as directed. May use topical anti itch creams such as benadryl, calamine lotion to small blisters and oozing skin to help dry out the rash. Do not open the blisters as this may predispose the skin to infection. Stay cool/dry, apply cool compresses to the itchy areas may be comforting. Refrain from Hot showers. F/u with your pcp as needed. F[facility]u with [facility] in [facility]-2 weeks as needed. Go to ER for any sudden changes. Not available 08/11/2022 13:07:21 09/02/2022 [id number] dermatitis: care instructions Not available 09/02/2022 18:50:31 We are not sure of the cause of your rash but it is seemingly allergic in nature given the findings and the itching. Given that it should respond to steroids. Use the topical cream as directed along with the oral medicaton for itching. If it fails to improve or continues to worsen please be re-evaluated. Follow up with your PCP as needed. Not available 09/02/2022 18:52:00 09/05/2022 [id number] hives: care instructions [email or web address] Not available 09/05/2022 11:36:21 dermatitis: care instructions [email or web address] Not available 09/05/2022 11:36:44 You were prescribed Prednisone - Here is some general Information regarding this medication. 1. Make sure you take with Food 2. Do not take right before bedtime -this should be taken during the day because it may make you a little more wired. May keep you from sleeping. 3. Prednisone will increase glucose -so if you are a diabetic then you will need to monitor your glucose closely. Please d/c if glucose goes above 300. 4. Do not take this medication with Ibuprofen [email or web address] Not available 09/05/2022 11:36:01 07/20/2023 [id number] bronchitis: care instructions Not available 07/20/2023 14:38:58 Reason for Referral None Reported. Problems Name Problem SNOMED Code Status Onset Date Resolution Date Notes Provider Name and Address Organization Details Recorded Time Diabetes mellitus 93526214 Active ANTELMO Wadsworth RA - [facility] 3 12:49:03 Irritable bowel syndrome 64184525 Active IVA WEINER-RIVE RA null, PA - [facility] 3 12:50:18 Acute bronchitis 96943027 Active 024 Ba Felton, [employer] [address] , [place], [address], PA - [facility] 4 14:36:47 Problem Notes None recorded. Procedures Surgical History Date Name Laterality Status Provider Name and Address Organization Details Recorded Time Removal of tonsils completed IVA WEINER-STEARNS PA - [facility] 08/11/2022 12:49:50 hernia repair completed IVA WEINER-STEARNS PA - [facility] 08/11/2022 12:49:57 cholecystectomy completed IVA WEINER-STEARNS PA - [facility] 08/11/2022 12:50:08 Imaging Results None recorded. Procedure Notes None recorded. Medical Equipment None Reported. Allergies Allergen ID Allergen Name Allergen Category Reaction Reaction Severity Criticality Documentation Date Start Date Code Code System Note Provider Name and Address Organization Details Recorded Time 388967 Substance with sulfonami de structure and antibacte rial mechanism of action (substanc e) medicatio n Not available Not available Not available 08/11/2022 16210 8003 SNOMED visua l blurr iness APRIL KLEBER null, PA - [facility] 3 17:57:48 961750 Macrodant in medicatio n fever Not available Not available 08/11/2022 60835 4 RxNorm IVA WEINER-RIVE RA null, PA - [facility] 3 12:47:16 599030 Product containin g penicilli n (product) medicatio n Not available Not available Not available 08/11/2022 26685 8001 SNOMED unkno wn APRIL PAEZLEXIE null, PA - [facility] 3 17:58:02 192285 ciproflox acin medicatio n fever Not available Not available 08/11/2022 2551 RxNorm IVALEROY WEINER-RIVE RA null, PA - [facility] 3 12:48:01 Medications Name Sig Start Date Stop Date Status Note LastModified by Organization Details LastModified Time metformin 500 mg tablet TAKE 1 TABLET BY MOUTH EVERY MORNING AND 2 TABLETS BY MOUTH AT NIGHT active Not Available Not Available No t Available prednisone 10 mg tablet 4 pills po qd x 3 days, 3 pills po qd x 3 days, 2 pills po qd x 2 days, 1 pills po qd x 2 days 07/19 completed Not Available Not Available Not Available pravastatin 40 mg tablet TAKE 1 TABLET BY MOUTH EVERY DAY active Not Available Not Available No t Available benzonatate 200 mg capsule TAKE 1 CAPSULE BY MOUTH THREE TIMES DAILY FOR 7 DAYS NEEDED FOR COUGH active Not Available Not Available No t Available prednisone 20 mg tablet TAKE 2 TABLETS BY MOUTH EVERY DAY IN THE MORNING FOR 3 DAYS FOR INFLAMMAT ION active Not Available Not Available No t Available permethrin 5 % topical cream APPLY TOPICALLY TO THE AFFECTED AREA EVERY WEEK FOR 14 DAYS 07/19 completed Not Available Not Available Not Available triamcinolo ne acetonide 0.1 % topical cream APPLY THIN COAT TO AFFECTED AREA TWICE A DAY active Not Available Not Available No t Available methenamine hippurate 1 gram tablet TAKE 1 TABLET BY MOUTH EVERY DAY. TAKE WITH VITAMINC OR CRANBERRY . STOP IF ON ANY OTHER ANTIBIOTI CS active Not Available Not Available No t Available cephalexin 500 mg capsule TAKE 1 CAPSULE BY MOUTH TWICE DAILY 09/02 completed Not Available Not Available Not Available montelukast 10 mg tablet TAKE 1 TABLET BY MOUTH EVERY DAY active Not Available Not Available No t Available hydroxyzine HCl 25 mg tablet TAKE 1 TABLET BY MOUTH THREE TIMES A DAY NEEDED FOR 7 DAYS active Not Available Not Available No t Available ergocalcife rol (vitamin D2) 1,250 mcg (50,000 unit) capsule TAKE 1 CAPSULE BY MOUTH 1 TIME A WEEK 08/11 completed Not Available Not Available Not Available azelastine 137 mcg (0.1 %) nasal spray USE 2 SPRAYS IN EACH NOSTRIL TWICE DAILY DIRECTED active Not Available Not Available No t Available scopolamine 1 mg over [address] PATCHES BEHIND THE EAR EVERY 72 HOURS NEEDED 08/11 completed Not Available Not Available Not Available albuterol sulfate HFA 90 mcg/actuati on aerosol inhaler INHALE 2 PUFFS BY MOUTH EVERY 4 HOURS FOR 10 DAYS NEEDED FOR WHEEZING OR COUGH active Not Available Not Available No t Available fluticasone propionate 50 mcg/actuati on nasal spray,suspe nsion INSTILL 1 SPARY INTRANASA LLY DAILY active Not Available Not Available No t Available metformin ER 500 mg tablet,exte nded release 24 hr TAKE 1 TABLET BY MOUTH EVERY MORNING AND 2 TABLETS BY MOUTH AT NIGHT active Not Available Not Available No t Available loratadine 10 mg tablet TAKE 1 TABLET BY MOUTH TWICE DAILY active Not Available Not Available No t Available Mucinex active Not Available Not Avail able Not Available Trulicity 0.75 mg/0.5 mL subcutaneou s pen injector ADMINISTE R 0.75 MG UNDER THE SKIN EVERY 7 DAYS active Not Available Not Available No t Available Vitals Date Recorded Body height Body weight Oxygen saturation Oxygen saturation in Arterial blood by Pulse oximetry Heart rate Body height Body mass index (BMI) Body weight Oxygen saturation Oxygen saturation in Arterial blood by Pulse oximetry Heart rate Respiratory rate Provider Name and Address Organization Details Last Updated DateTime 4 165.1 cm 48469.2 2 g 99 % 99 % 75 /min 165.1 cm 25.6 kg/m2 71481.2 2 g 99 % 99 % 75 /min 16 /min Wendi Suarez [email or web address] - [employer] [facility] 4 14:22:17 Date Recorded Body temperature Systolic And Diastolic Systolic And Diastolic Provider Name and Address Organization Details Last Updated DateTime 07/20/2023 98 [degF] 133/85 mm[Hg] 133/85 mm[Hg] Wendi Suarez [email or web address] - [facility] 07/20/2023 14:22:06 Date Recorded Body height Body mass index (BMI) Body weight Pain severity - 0-10 verbal numeric rating [Score] - Reported Respiratory rate Body temperature Heart rate Oxygen saturation Oxygen saturation in Arterial blood by Pulse oximetry Systolic And Diastolic Provider Name and Address Organization Details Last Updated DateTime 3 165.1 cm 26.6 kg/m2 31646.7 8 g 8 16 /min 97.8 [degF] 82 /min 98 % 98 % 117/80 mm[Hg] IVA OJEDA RA PA - [facility] 3 12:52:51 Date Recorded Body height Pain severity - 0-10 verbal numeric rating [Score] - Reported Body mass index (BMI) Body weight Oxygen saturation Oxygen saturation in Arterial blood by Pulse oximetry Heart rate Respiratory rate Body temperature Systolic And Diastolic Provider Name and Address Organization Details Last Updated DateTime 3 165.1 cm 0 26.6 kg/m2 32325.7 8 g 100 % 100 % 61 /min 16 /min 98.2 [degF] 130/78 mm[Hg] APRIL SHAHID PA - [facility] 3 18:00:07 Date Recorded Body height Body mass index (BMI) Body weight Pain severity - 0-10 verbal numeric rating [Score] - Reported Respiratory rate Body temperature Heart rate Oxygen saturation Oxygen saturation in Arterial blood by Pulse oximetry Systolic And Diastolic Provider Name and Address Organization Details Last Updated DateTime 3 165.1 cm 26.6 kg/m2 19822.7 8 g 0 16 /min 98 [degF] 80 /min 98 % 98 % 134/73 mm[Hg] APRIL SHAHID PA - [facility] 3 10:54:01 Social History Question Answer Notes LastModified by Cadent Details LastModified Time Tobacco Smoking Status Never Smoker IVA chang PA - [facility] 08/11/2022 12:49:39 Have You Had A Flu Shot This Season? No Information not available 07/20/2023 If No, Would You Like A Flu Shot Today? No Information not available 07/20/2023 What Is Your Water Source? City Information not available 07/20/2023 What Is Your Heat Source? Other Information not available 07/20/2023 Have You Had Direct Contact, Or Contact During Intimacy, With Monkeypox Rash, Scabs, Or Body Fluids From A Person With Monkeypox? No Information not available 08/11/2022 Have You Recently Traveled Abroad? No Information not available 08/11/2022 Are You Currently In School? No Information not available 07/20/2023 Sex: Unknown Functional Status Question Answer Note LastModified by Cadent Details LastModified Time Do you use any illicit or recreational drugs? No Information not available 08/11/2022 Do you or have you ever used any other forms of tobacco or nicotine? No Information not available 08/11/2022 What is your level of alcohol consumption? None [email or web address] Information not available 09/02/2022 Are you currently employed? Yes Information not available 07/20/2023 Mental Status None recorded. Family History Relationship Description Onset Age of this Age Resolved Age Notes LastModified by Organization Details LastModified Time Unspecified Relation Diabetes mellitus Not available 12/2022 12:49:24 Unspecified Relation Heart disease Not available 12/2022 12:49:29 Medical History No medical history recorded. Gynecological History Statement/Question Response Is there any chance of ? No LMP N/A Obstetrics History GPAL:G 0 P 0 0 0 0 Immunizations Vaccine Type Date Status Note Provider Nam e and Address Organization Details Recorded Time zoster recombinant 04/08/2021 completed IVA WEINER-STEARNS null, PA - [facility] 08/11/2022 12:46:38 zoster recombinant 01/30/2021 completed IVA WEINER-STEARNS null, PA - [facility] 08/11/2022 12:46:38 COVID-19, mRNA, LNP-S, PF, 100 mcg/0.5mL dose or 50 mcg/0.25mL dose 05/28/2020 completed IVA WEINER-STEARNS null, PA - [facility] 08/11/2022 12:46:38 COVID-19, mRNA, LNP-S, PF, 100 mcg/0.5mL dose or 50 mcg/0.25mL dose 06/25/2020 completed IVA WEINER-STEARNS null, PA - [facility] 08/11/2022 12:46:38 COVID-19, mRNA, LNP-S, PF, 100 mcg/0.5mL dose or 50 mcg/0.25mL dose 01/30/2021 completed IVA WEINER-STEARNS null, PA - [facility] 08/11/2022 12:46:38 COVID-19, mRNA, LNP-S, bivalent, PF, 50 mcg/0.5 mL or 25mcg/0.25 mL dose 03/09/2022 completed IVA GOODWIN null, PA - [facility] 08/11/2022 12:46:38 Tdap 01/17/2021 completed IVA GOODWIN null, PA - [facility] 08/11/2022 12:46:38 Influenza, split virus, quadrivalent, PF 01/17/2021 completed IVA GOODWIN null, PA - [facility] 08/11/2022 12:46:38 Past Encounters Encounter ID Performer Location Encounter Start Date Encounter Closed Date Diagnosis/Indication Diagnosis SNOMED-CT Code Diagnosis ICD10 Code Diagnosis [place] [id number] [place] [address] [address] [place] [address] 08/11/2022 12:41:38 08/11/2022 13:09:03 Allergic contact dermatitis caused by urushiol from [facility] yuni 985682582 L23.7 [id number] ANTELMO Epperson [address] [facility] [address] [place] [address] 09/02/2022 16:51:00 09/02/2022 18:52:37 Acute dermatitis 71145847 L30.9 [id number] [facility] [address] [facility] [address] [place] [address] 09/05/2022 10:34:30 09/05/2022 11:38:07 Contact dermatitis 47469077 L25.9 I really do not think that this is an infectious or contagious rash. I think it looks like a chemical/p roduct contact dermatitis . I would continue the hydroxyzin e. I think I would hold on any more creams or lotions on the skin at this time. Try no to scratch. Cool Compresses . I do not think that this is scabies - but I will give you the medication to treat if you have the spots on your elbows, armpits, and wrist like we talked about. Use all natural sunscreen on your [place]. [id number] [place] [address] [place] [address] 07/20/2023 10:55:53 07/20/2023 11:54:40 Left without being seen [id number] 9102 Z53.21 [id number] Ba Felton, AURELIO [address] [facility] [address] [facility] [place] [address] 07/20/2023 14:08:57 07/20/2023 14:45:07 Acute bronchitis 40378269 J20.9 Acute bronchitis is a common clinical condition characteri zed by an acute onset but persistent cough, with or without sputum production . It is typically self-limit ed, resolving within one to three weeks. Symptoms result from inflammati on of the lower respirator y tract and are most frequently due to viral infection. Treatment is focused on patient education and supportive care. Antibiotic s are not needed for the great majority of patients with acute bronchitis but are greatly overused for this condition. Reducing antibiotic use for acute bronchitis is a national and internatio ecu health health care priority. In most patients, the cough persists for 1 to 3 weeks, with a average duration of 18 days. The cough may be associated with either purulent or nonpurulen t sputum production The presence of purulent sputum is a nonspecifi c finding and does not appear to be predictive of bacterial infection or that antibiotic s are needed. For the great majority of patients, use of antibiotic s does not hasten recovery or prevent complicati ons but puts patients at increased risk of adverse effects including potentiall y severe complicati ons such as Clostridio ides difficile infection and anaphylaxi s. Non-Pharma cological treatment for coughin . Throat lozenges2. Hot tea3. Honey4. Smoking cessation5 . Avoidance of second hand smoke. Pharmacolo gical Treatment: 1. Robitussin or guafenesin 2. Antihistam ines3. dextrometh orphan I would plan on being seen again if any of the following symptoms develop:1. Fever (100.5)2. Shortness of breath3. Wheezing4. Worsening Cough. I would go to the ER if you develop:1. Severe Shortness of breath2. Chest Pain3. Wheezing4. Coughing up Blood Health Concerns Section Related Observation LastModified by Organization Detai ls LastModified Time None Recorded Concern Status LastModified by Organization Details LastModified Time None Recorded Advance Directives Directive None Recorded Payers Insurance Date Sequence Insurance Name Policy Number Policy Tucker Covered Member ID Tucker Member ID Guarantor Name 07/20/2023 1 [facility] [id number] Adry Verde [id number] Adry Murrya Episode No OBEpisode recorded.
== END 2024-09-29 11:30 | disposition home or self-care (01) ==
LOC: HO.HPSW 10:22
PROVIDERS: PCP Internal Medicine; Referring Provider Internal Medicine; Visit Provider Nurse Practitioner Family
DX: J45.909 Unspecified asthma, uncomplicated (principal); I28.8 Other diseases of pulmonary vessels
CPT/HCPCS: 99204

== ENCOUNTER 2024-11-13 11:59 | Outpatient (REF) | payer OTHER, SELFPAY ==
--- OUTSIDE RECORDS SUMMARY | 2023-09-02 05:30 | XMS_ITS ---
Author Organization [facility] Address [address] [place] [address] Care Team Providers Care Dredge Hand Name Role Phone HARISH AGUILAR Unavailable [phone] Allergies Allergen (clinical drug ingredient) Drug/Non Drug [...] Problem Congenital valgus deformity of foot (disorder) (82131453) Pes planovalgus (Q66.51) Active confirmed Problem Congenital valgus deformity of foot (disorder) (90056157) Pes planovalgus (Q66.52) Active confirmed Problem Type II diabetes mellitus without complication (755008085) Type 2 diabetes mellitus without complications (E11.9) Active confirmed Encounters Encounter Location Date Provider Diagnosis [facility] [address] [place] [address] 09/02/2023 HARISH AGUILAR Foot pain, right M79 [...] Notes * MIKEY MORALESHDOB:1965 (58 yo F)Acc No.[id number]:09/02/2023 Patient: BAILEY GOLDEN Provider: Avery Aguilar DPM :1965 A ge:57 Y S ex:Female Date:09/02/2023 Address:[address] [place] [address] Subjective: * Chief Complaints: * 1 . [...] rn * Billing Information: * Visit Code: 20169 Office Visit, New Pt., Level 3. * Procedure Codes: G8510 NEG SCR D PT NOT ELIG F/U/PLN DOC. G9903 Pt scrn tbco id as non user. 3288F FALL RISK ASSESSMENT DOCD. * Electronic signature of BEBE AGUILAR DPM on 11/13/2024 at 02:30 PM EDT Sign off status: Pending * Provider: Avery Aguilar DPM Date: 09/02/2023 Generated for Mary mcfarlane/Kita/eTransmitting on: 0 11/13/2024 02:30 PM EDT History and Physical Notes * HPI [...] ormal Sensory and motor testing [facility]:: [facility] normal Pedal pulse taking performed:: 2+ Visual exam of foot performed:: Yes Routine Foot Care Footwear exam Pt is wearing a sandal today with little to no support
--- OUTSIDE RECORDS SUMMARY | 2023-12-18 08:15 | XMS_ITS ---
Author Organization [facility] [address] Address [address] [place] [address] Care Team Providers Care Chummer Name Role Phone URSZULA LONG Unavailable [phone] Encounters Encounter Location Date Provider Diagnosis [facility] [address] [place] [address] 12/18/2023 URSZULA LONG Plan Of Treatment No Information Progress Notes * Hermila HARDYhDOB:1965 (58 yo F)Acc No.[id number]:12/18/2023 CPE Patient: Adry GOLDEN Provider: Lanie LONG MD :1965 A ge:58 Y S ex:Female Date:12/18/2023 [facility] Subjective: * Chief Complaints: * * Medical History: Objective: * Vitals: Assessment: Plan: * Treatment: * Images: Billing Information: * Visit Code: * Procedure Codes: Care Plan Details* * Electronic signature of WILFRED LONG on 11/13/2024 at 02:31 PM EDT Sign off status: Pending * Provider: Lanie LONG MD Date: 1 Generated for Mary mcfarlane/Kita/eTjasmynsmitting on: 0 11/13/2024 02:31 PM EDT
--- OUTSIDE RECORDS SUMMARY | 2024-11-13 14:31 | XMS_ITS | Patient Health Record ---
Author Organization [address] Address [address] [place] [address] Care Team Providers Care Tan Room Supervisor Name Role Phone URSZULA LONG Unavailable [phone] Allergies Allergen (clinical drug ingredient) Drug/Non Drug Allergy documented on EMR Reaction Allergy Type Onset Date Status Substance with sulfonamide structure and antibacterial mechanism of action (substance) sulfa (uncoded) seeing double Allergy Active ciprofloxacin Cipro unknown Drug Allergy Act ashlie nitrofurantoin Macrodantin shortness of breath Drug Allergy Active Reason For Referral No Information Medications Medication SIG (Take, Route, Frequency, Duration) Notes Start Date End Date Status Trulicity 0.75 MG/0.5ML as directed Subc utaneous Every 7 days Active Methenamine Hippurate 1 GM 1 tablet Oral ly Twice a day Active metFORMIN HCl ER 500 MG 1 Tablet in the morning and 2 Tablets with evening meal Orally Once a day Active One Daily For Women - as directed Orally Active Colace 100 MG 1 capsule as needed Orally Once a day Active Singulair 10 MG 1 tablet Orally Once a day Active Pravastatin Sodium 40 MG 1 tablet Orally Once a day Active Social History Tobacco Use: Social History Observation Description Date Details (start date - stop date) Current Smoker NA - NA Tobacco Use/Smoking Question Answer Notes Are you a current smoker How often do you smoke cigarettes? every day How many cigarettes a day do you smoke? 5 or les s Alcohol Screen (Audit-C) Question Answer Notes Did you have a drink containing alcohol in the p ast year? 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 Problem Type SNOMED Code ICD Code Onset Dates Problem Status W/U Status Risk Notes Problem Vitamin D deficiency (72093009) Vitamin D deficiency, unspecified (E55.9) Active confirmed Problem Diabetes mellitus screening (571490324) Encounter for screening for diabetes mellitus (Z13.1) Active confirmed Problem Endocrine/metaboli c screening (053742155) Encounter for screening for other suspected endocrine disorder (Z13.29) Active confirmed Problem Annual health maintenance examination (81688809) Annual physical exam (Z00.00) Active confirmed Problem Seasonal allergy (147996625) Seasonal allergies (J30.2) Active confirmed Problem Type II diabetes mellitus without complication (266801111) Type 2 diabetes mellitus without complication, unspecified whether billing assistant insulin use (E11.9) Active confirmed Problem Mixed hyperlipidemia (486583282) Hyperlipidemia, mixed (E78.2) Active confirmed Problem Asthma (507981706) Asthma (J45.909) Active confirmed Problem Lipid screening (347395532) Lipid screening (Z13.220) Active confirmed Encounters Encounter Location Date Provider Diagnosis [facility] [address] [place] [address] 10/21/2024 URSZULA LONG Plan Of Treatment Pending Test Test Name Order Date LIPID PANEL, STANDARD 05/15/2023 MICROALBUMIN, RANDOM URINE (W/CREATININE ) 05/15/2023 COMPREHENSIVE METABOLIC PANEL 05/15/2023 CBC (INCLUDES DIFF/PLT) 05/15/2023 INSULIN 05/15/2023 TSH 05/15/2023 VITAMIN D,25-OH,TOTAL,IA 05/15/2023 Insurance Providers Payer Name Payer Address Payer Phone Subscriber Number Group Number Insured Name Patient Relationship to Insured Coverage Start Date Coverage End Date [facility] [address] [place] [address] [id number] [place] Adry Self - patient is the insured 2 Medical (General) History Medical History History ICD Code Diabetes mellitus without complication E 11.9 Pneumonia, unspecified organism J18.9 Asthma J45.909 Gallbladder disease K82.9 Seasonal allergies J30.2 Surgical History Surgery Date(Month/Year) tonsillectomy Gallbladder Removal hernia repairs
--- OUTSIDE RECORDS SUMMARY | 2024-11-13 14:32 | XMS_ITS | Patient Health Record ---
Author Organization [facility] Address [address] [place] [address] Care Team Providers Care Director Of Purchasing Name Role Phone Tae Schulz MD Primary Care Provider Unavail able JusticeSharath ray Unavailable [phone] Allergies Allergen (clinical drug ingredient) Drug/Non Drug [...] Problem Type II diabetes mellitus without complication (960827132) Type 2 diabetes mellitus without complications (E11.9) Active confirmed Plan Of Treatment No Information Insurance Providers Payer Name Payer Address Payer Phone Subscriber Number Group Number Insured Name Patient Relationship to Insured Coverage Start Date Coverage End Date [employer]a [address] [place] [phone] [id number] Adry Verde Self - patient is the insured Medical (General) History Medical History History ICD Code asthma Back,Hip,and Knee pain Diabetic Gall bladder problems Raynauds syndrome chronic sinusitis Chicken pox Surgical History Surgery Date(Month/Year) gall bladder 1993
--- OUTSIDE RECORDS SUMMARY | 2024-11-13 14:32 | XMS_ITS | Clinical Summary ---
Author Organization [facility] [address] [place] [address] [place] [phone] Phone Care Team Providers Care Inventory Analyst Name Role Phone Lex Hutchins MD Primary Care Provider [phone] Allergies Active Allergy Reactions Criticality Noted Date [...] by mouth 1 (one) time each day. 1 Active fluticasone propionate (FLONASE) 50 mcg/actuation nasal spray Administer 1 spray into each nostril 1 (one) time each day. 4 Active metFORMIN XR (GLUCOPHAGE-XR) 500 mg 24 hr tablet Do not crush, chew, or split.TAKE 1 TABLET BY MOUTH EVERY MORNING, AND 2 TABLETS BY MOUTH EVERY EVENING. 270 tablet 1 5 Active Trulicity 0.75 mg/0.5 mL pen injector injection Inject 0.5 mL (0.75 mg total) under the skin every 7 (seven) days. 6 mL 3 5 Active Active Problems Problem Noted Date Diagnosed Date Diabetes mellitus, type II (CMS/HCC V24, CMS/HCC V28) 05/01/2022 Asthma 05/01/2022 Allergic rhinitis 05/01/2022 Diverticulosis 05/01/2022 Hyperlipemia 05/01/2022 Irritable bowel syndrome 05/01/2022 Lumbar stenosis 05/01/2022 Encounters Date Type Department Care Team Description 09/18/2024 1:00 PM EDT Office Visit Endocrinology [address] [phone] Gia Barbour PA Type 2 diabetes mellitus with other specified complication, unspecified whether skilled nursing insulin use ([facility] V24, [facility] V28) (Primary Dx) from Last 3 Months Surgical History Surgery Date Site/Laterality Comments UMBILICAL HERNIA REPAIR PROCEDURE: LAP UMBILICAL HERNIA REPAIR; COMMENT: [facility] no complications CHOLECYSTECTOMY PROCEDURE: HISTORICAL CHOLECYSTECTOMY; COMMENT: about 30 yrs ago, [facility] TONSILLECTOMY PROCEDURE: HISTORICAL TONSILLECTOMY; COMMENT: 15 yrs old ADENOIDECTOMY PROCEDURE: HISTORICAL ADENOIDECTOMY Medical History Medical History Date Comments IBS (irritable bowel syndrome) D X:IBS (irritable bowel syndrome) Type 2 diabetes mellitus wit hout complications ([facility] V24, [facility] V28) DX:Type 2 horacio betes mellitus without complications ([facility]) Mild intermittent asthma, uncomplicated DX:Mild intermittent asthma, [...] 3:30 PM EST Office Visit Endocrinology - [place] [address] [place] [address] Gia Barbour PA [address] [place] [address] Health Maintenance Due Date Last Done Comments Breast Cancer Screening 1965 Diabetes: Annual Foot Exam 11/17/1973 Pneumococcal Vaccine: 50+ Years (1 of 2 - PCV) 11/17/1982 Cervical Cancer Screening: Pap Smear 11/17/1984 Colorectal Cancer Screening: Colonoscopy 01/30/2022 HIV Screening 01/30/2022 Hepatitis C Screening 01/30/2022 Social Influencers of Health Screening 01/30/2022 RSV Immunization Adult Patients (1 - Risk 60-74 years 1-dose series) 2023 Depression Screening 03/04/2024 COVID-19 Vaccine ( season) 2024 03/09/2022, 01/30/2021, 06/25/2020, Additional history exists Influenza Vaccine (#1) 2024 01/17/2021 Diabetes: Annual [...] mellitus with other specified complication, unspecified whether terminal worker insulin use ([facility] V24, [facility] V28) BASIC METABOLIC PANEL Routine 09/18/2024 1:52 PM EDT Type 2 diabetes mellitus with other specified complication, unspecified whether skilled nursing insulin use ([facility] V24, [facility] V28) LIPID PANEL WITH REFLEX TO DIRECT LDL Routine 09/18/2024 1:52 PM EDT Type 2 diabetes mellitus with other specified complication, unspecified whether skilled nursing insulin use ([facility] V24, CMS/[facility] V28) MICROALBUMIN CREATININE URINE RATIO Routine 09/18/2024 1:52 PM EDT Type 2 diabetes mellitus with other specified complication, unspecified whether skilled nursing insulin use ([facility] V24, [facility] V28) POC GLUCOSE Routine 09/18/2024 1:14 PM EDT Type 2 diabetes mellitus with other specified complication, unspecified whether skilled nursing insulin use ([facility] V24, [facility] V28) from Last 3 Months Results * (ABNORMAL) Lipid panel with reflex to direct LDL (09/18/2024 1:52 PM EDT) Cholesterol 162 0 - 200 mg/dL LAB CHEMISTRY METHOD 09/18/2024 5:38 PM EDT [facility] Triglycerides 213(H) 0 - 150 mg/dL LAB CHEMISTRY METHOD 09/18/2024 5:38 PM EDT [facility] HDL 53 >=40 mg/dL LAB CHEMISTRY METHOD 09/18/2024 5:38 PM EDT [facility] LDL Calculated 66 0 - 100 mg/dL LAB CHEMISTRY METHOD 09/18/2024 5:38 PM EDT [facility] VLDL Cholesterol Danial 42.6 mg/dL LAB CHEMISTRY METHOD 09/18/2024 5:38 PM EDT [facility] Non HDL Chol. (LDL+VLDL) 109 <145 mg/dL LAB CHEMISTRY METHOD 09/18/2024 5:38 PM EDT [facility] Chol/HDL Ratio 3.1 0.0 - 4.4 LAB CHEMISTRY METHOD 09/18/2024 5:38 PM EDT [facility] Blood Venous blood specimen / Unknown Venipuncture / Unknown 09/18/2024 1:52 PM EDT 09/18/2024 1:52 PM EDT us Gia RODRIGES LAB BLOOD ORDERABLES Final Result [facility] [address] [place] [address], * Microalbumin creatinine urine ratio (09/18/2024 1:52 PM EDT) Creatinine, Urine 46.0 mg/dL LAB CHEMISTRY METHOD 09/18/2024 6:46 PM EDT [facility] Microalb, Ur <5.0 0.0 - 29.0 mg/L LAB CHEMISTRY METHOD 09/18/2024 6:46 PM EDT [facility] Microalb/Creat Ratio <11 <30 mg/g creat LAB CHEMISTRY METHOD 09/18/2024 6:46 PM EDT [facility] Urine Urine specimen from urethra / Unknown Non-blood Collection / Unknown 09/18/2024 1:52 PM EDT 09/18/2024 1:52 PM EDT Gia RODRIGES LAB URINE ORDERABLES Final Result Performing Organization Address [facility]/ZIP Co de Phone Number [facility] [address] [place] [address], [place] [phone] * (ABNORMAL) Hemoglobin A1c (09/18/2024 1:52 PM EDT) Hemoglobin A1C 6.9(H) <6.5 % LAB CHEMISTRY METHOD 09/18/2024 10:52 PM EDT [facility] Mean Bld Glu Estim. 151 mg/dL LAB CHEMISTRY METHOD 09/18/2024 10:52 PM EDT [facility] Blood Venous blood specimen / Unknown Venipuncture / Unknown 09/18/2024 1:52 PM EDT 09/18/2024 1:52 PM EDT Gia RODRIGES LAB BLOOD ORDERABLES Final Result [facility] [address] [place] [address], [place] [phone] * (ABNORMAL) Basic metabolic panel (09/18/2024 1:52 PM EDT) Sodium 139 133 - 145 mmol/L LAB CHEMISTRY METHOD 09/18/2024 5:36 PM EDT [facility] Potassium 4.0 3.5 - 5.5 mmol/L LAB CHEMISTRY METHOD 09/18/2024 5:36 PM [facility] Chloride 102 96 - 110 mmol/L LAB CHEMISTRY METHOD 09/18/2024 5:36 PM [facility] CO2 32 21 - 32 mmol/L LAB CHEMISTRY METHOD 09/18/2024 5:36 PM [facility] Anion Gap 5 3 - 11 LAB CHEMISTRY METHOD 09/18/2024 5:36 PM [facility] Glucose 126(H) 70 - 100 mg/dL LAB CHEMISTRY METHOD 09/18/2024 5:36 PM [facility] BUN 22 5 - 25 mg/dL LAB CHEMISTRY METHOD 09/18/2024 5:36 PM [facility] Creatinine 0.88 0.50 - 1.10 mg/dL LAB CHEMISTRY METHOD 09/18/2024 5:36 PM [facility] eGFR 75 >=60 mL/min/1. 73m2 LAB CHEMISTRY METHOD 09/18/2024 5:36 PM [facility] Comment:Calculation based on the Chronic Kidney Disease Epidemiology Collaboration (CKD-EPI) equation refit without adjustment for race. BUN/Creatinine Ratio 25.0 LAB CHEMISTRY METHOD 09/18/2024 5:36 PM [facility] Calcium 9.5 8.5 - 10.5 mg/dL LAB CHEMISTRY METHOD 09/18/2024 5:36 PM [facility] Blood Venous blood specimen / Unknown Venipuncture / Unknown 09/18/2024 1:52 PM EDT 09/18/2024 1:52 PM EDT us Gia RODRIGES LAB BLOOD ORDERABLES Final Result [facility] [address] [place] [address], [place] [phone] * POC glucose manually resulted (09/18/2024 1:14 PM EDT) Glucose POC 163 mg/dL Comment:non fasting Blood Capillary blood specimen / Unknown 09/18/2024 1:14 PM EDT us Gia RODRIGES POINT OF CARE TEST ENTER/ED IT ORDERABLES Final Result from Last 3 Months Insurance [facility] [address] [place] [address] Care Teams Inventory Analyst Relationship Specialty Start Date End Date Lex Hutchins MD [address] [place] [id number] PCP - General Internal Medicine 09/18/24
--- OUTSIDE RECORDS SUMMARY | 2024-11-13 14:32 | XMS_ITS | Patient Health Record ---
Author Organization [facility] Address [address] [facility] [address] [place] [address] Care Team Providers Care Rags Laborer Name Role Phone HARISH BLANK Unavailable [phone] Allergies Allergen (clinical drug ingredient) Drug/Non Drug Allergy documented on EMR Reaction Allergy Type Onset Date Status Substance with sulfonamide structure and antibacterial mechanism of action (substance) sulpha (uncoded) unknown Allergy Active ciprofloxacin Cipro unknown Drug Allergy Act ashlie nitrofurantoin Macrodantin seeing double Drug Allergy Active Reason For Referral No Information Medications Medication SIG (Take, Route, Fr equency, [...] Problem Type II diabetes mellitus without complication (836980942) Type 2 diabetes mellitus without complications (E11.9) Active confirmed Problem Congenital valgus deformity of foot (disorder) (74263245) Pes planovalgus (Q66.51) Active confirmed Problem Congenital valgus deformity of foot (disorder) (74522112) Pes planovalgus (Q66.52) Active confirmed Plan Of Treatment No Information Insurance Providers Payer Name Payer Address Payer Phone Subscriber Number Group Number Insured Name Patient Relationship to Insured Coverage Start Date Coverage End Date [facility] [address] [place] [id number] BAILEY MORALES Self - patient is the insured 2 Medical (General) History Medical History History ICD Code diabetes mellitus hyperlipidemia Surgical History Surgery Date(Month/Year) gallbladder tonsillectomy hernia
== END 2024-11-13 12:00 | disposition home or self-care (01) ==
LOC: CF 11:59
DX: Z13.89 Encounter for screening for other disorder (principal)

== ENCOUNTER 2024-12-01 15:31 | Outpatient (AMB) | payer OTHER, SELFPAY ==
--- OUTSIDE RECORDS SUMMARY | 2023-09-02 05:30 | XMS_ITS ---
Author Organization [facility] Address [address] [facility] [address] [place] [address] Care Team Providers Care Registered Mail Clerk Name Role Phone HARISH AGUILAR Unavailable [phone] Allergies Allergen (clinical drug ingredient) Drug/Non Drug [...] Problem Congenital valgus deformity of foot (disorder) (62055891) Pes planovalgus (Q66.51) Active confirmed Problem Congenital valgus deformity of foot (disorder) (46743002) Pes planovalgus (Q66.52) Active confirmed Problem Type II diabetes mellitus without complication (024736856) Type 2 diabetes mellitus without complications (E11.9) Active confirmed Encounters Encounter Location Date Provider Diagnosis [facility] [address] [facility] [address] [place] [address] 09/02/2023 HARISH AGUILAR Foot pain, right M79 [...] prn, Reason: Progress Notes * MIKEY MORALESHDOB:1965 (59 yo F)Acc No.[id number]:09/02/2023 Patient: BAILEY GOLDEN Provider: Avery Aguilar DPM :1965 A ge:57 Y S ex:Female Date:09/02/2023 Address:[address] [place] [address] Subjective: * Chief Complaints: * 1 . [...] rn * Billing Information: * Visit Code: 02141 Office Visit, New Pt., Level 3. * Procedure Codes: G8510 NEG SCR D PT NOT ELIG F/U/PLN DOC. G9903 Pt scrn tbco id as non user. 3288F FALL RISK ASSESSMENT DOCD. * Electronic signature of BEBE AGUILAR DPM on 12/01/2024 at 04:47 PM EDT Sign off status: Pending * Provider: Avery Aguilar DPM Date: 09/02/2023 Generated for Mary mcfarlane/Kita/eTransmitting on: 12/01/2024 04:47 PM EDT History and Physical Notes * [...] ormal Sensory and motor testing performed[facility] normal Pedal pulse taking performed:: 2+ Visual exam of foot performed:: Yes Routine Foot Care Footwear exam Pt is wearing a sandal today with little to no support
--- OUTSIDE RECORDS SUMMARY | 2023-12-18 08:15 | XMS_ITS ---
Author Organization [facility] [address] Address [address] [place] [address] Care Team Providers Care Department Assistant Name Role Phone URSZULA LONG Unavailable [phone] Encounters Encounter Location Date Provider Diagnosis [facility] [address] [place] [address] 12/18/2023 URSZULA LONG Plan Of Treatment No Information Progress Notes * Hermila HARDYhDOB:1965 (59 yo F)Acc No.[id number]:12/18/2023 CPE Patient: Adry GOLDEN Provider: Lanie LONG MD :1965 A ge:58 Y S ex:Female Date:12/18/2023 [facility] Subjective: * Chief Complaints: * * Medical History: Objective: * Vitals: Assessment: Plan: * Treatment: * Images: Billing Information: * Visit Code: * Procedure Codes: Care Plan Details* * Electronic signature of WILFRED LONG on 12/01/2024 at 04:47 PM EDT Sign off status: Pending * Provider: Lanie LONG MD Date: 1 Generated for Mary mcfarlane/Kita/eTransmitting on: 0 12/01/2024 04:47 PM EDT
--- NOTE | 2024-12-01 15:34 | A.OFFVIS_ITS ---
Vital Signs 12/01/24 15:35 Height 5 ft 5 in Weight 162 lb 4 oz BMI 27.0 BP 128/72 Blood Pressure Location Lt brachial Position Sitting Pulse 62 Pulse Source Pulse Oximeter Pulse Oximetry (%) 98 Oxygen Delivery Method Room Air Intake Visit Reasons: Pulmonary Hypertension Allergies ciprofloxacin Allergy (Intermediate, Verified 12/01/24 15:39) Unknown nitrofurantoin (From Macrobid) Allergy (Intermediate, Verified 12/01/24 15:39) Unknown Sulfa (Sulfonamide Antibiotics) Allergy (Intermediate, Verified 12/01/24 15:39) Photosensitivity HPI HPI Pulmonary Hypertension: Details: Shila is a pleasant 59-year-old female, former 10 pack year smoker, with underlying asthma, DMII. She was referred by PCP for pulmonary evaluation after chest CT revealed mildly enlarged pulmonary artery suggestive of pulmonary hypertension. Chest CT scan 07/2024, revealed mild dilation of the main pulmonary artery and mild cardiomegaly, with associated mild linear scarring of bilateral upper loabs and of RLL. Last echo 08/2023 demonstrated LVEF 60-70%, noting pulmonary artery appears normal and was unable to accurately measure pulmonary artery pressures otherwise unremarkable. Previously patient was mantained on Breo however has discontinued and currently denies any respiratory symptoms. The patient has a family history of sarcoidosis, with her mother and brother affected, raising concerns about potential hereditary implications. 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 [facility] Social History Patient Tobacco Use Status: Former Tobacco user Review of Systems Const Denies chills, Denies excessive sweating, Denies fever(s), Denies headache(s) and Denies night sweats Eyes Denies dry eyes, Denies irritation and Denies itchy eyes ENT Reports Normal hearing present, Denies headache(s), Denies nasal congestion, Denies nasal discharge, Denies post nasal drip and Denies sore throat Card Denies chest pain, Denies chest pain at rest, Denies chest pain with activity, Denies claudication, Denies leg edema, Denies dyspnea, Denies dyspnea on exert ion, Denies orthopnea and Denies paroxysmal nocturnal dyspnea Resp Denies chest congestion, Denies cough, Denies excessive phlegm production, Denies pain on inspiration, Denies pain with cough, Denies dyspnea, Denies dyspnea on exertion, Denies stridor and Denies wheezing Musc Denies myalgias Neuro Reports Normal hearing present and Denies headache(s) Endo Denies excessive sweating Rishi/Lymph Denies lymphadenopathy Aller/Immun Denies itchy eyes, Denies seasonal rhinorrhea and Denies wheezing Physical Exam Vital Signs: Last Vital Signs Pulse 62 12/01/24 15:35 BP 128/72 12/01/24 15:35 Pulse Ox 98 12/01/24 15:35 Oxygen Delivery Method Room Air 12/01/24 15:35 BMI result Body Mass Index 27.0 Const General: cooperative, healthy appearing, comfortable, no acute distress, well developed and alert Nutritional Appearance: average body habitus Orientation/consciousness: patient oriented x3 Limitations: no limitations HEENT Head: Yes normal to inspection, Yes normocephalic and Yes atraumatic Ears: hearing grossly normal bilaterally and external ears normal Eyes General: appearance normal, both eyes and all related structures Eyelids: Yes eyelids normal Sclerae: sclerae normal EOM: EOMs intact bilaterally Neck Neck: Yes normal visual inspection and Yes no lymphadenopathy Lymphatic: no lymphadenopathy noted Chest Chest palpation & inspection: normal inspection of the chest Resp Effort & Inspection: normal respiratory effort, able to speak in complete sentences, no audible wheezes, no cough, no stridor, not tachypneic, no tripod positioning and no use of accessory muscles Auscultation: clear to auscultation bilaterally Cardio Jugular venous distension: no JVD Rate: regular rate Rhythm: regular rhythm Skin Other: warm, dry General skin exam: no rashes or lesions noted Neuro General: patient oriented x3 Cranial nerves: Yes Normal hearing present Cognition (Neuro): normal cognition Gait exam (Neuro): Normal gait present Extrem General: Yes normal to inspection, Yes capillary refill normal, Yes no clubbing, cyanosis or edema and Yes no pedal edema Psych Appearance: grossly normal and well kempt Speech and movement: Normal speech and movement present and Clear speech present Affect: normal affect Attitude: cooperative Thought process: Normal thought process present Thought content: Normal thought content present Insight: Good insight present (Psych) Judgement: Good judgement present (Psych) Assessment & Plan Assessment & Plan (1) Asthma: Code(s): J45.909 - Unspecified asthma, uncomplicated Category: Medical (2) Enlarged pulmonary artery: Code(s): I28.8 - Other diseases of pulmonary vessels Category: Medical (3) Abnormal chest CT: Code(s): R93.89 - Abnormal findings on diagnostic imaging of other specified body structures Category: Medical Plan At this time patient denies any respiratory symptoms. The patient is advised to use albuterol MDI as needed, especially during respiratory infections or seasonal changes, to prevent exacerbations. Breo should be restarted at the onset of symptoms to avoid the need for systemic corticosteroids like prednisone. Discussed repeating echocardiogram as prior echo was performed before the most recent chest CT from 07/2024 demonstrating mild dilation of pulmonary artery. Reviewed images from chest CT from 07/2024 which revealed peripheral changes which could be be an evolving ILD, will repeat to assess for resolution vs progression. If symptoms such as dyspnea or cough develop, a breathing test may be considered to assess lung function. All questions were answered and patient is in agreement of plan. Will follow up to review results or sooner if needed. Coding Level of Care Code Est Pt Level 4 (63141) Diagnoses Asthma J45.909 Enlarged pulmonary artery I28.[address] R93.89
[2024-12-01 15:35] VITALS: BP 128/72; PULSE 62; O2SAT 98; BMI 27.0
--- OUTSIDE RECORDS SUMMARY | 2024-12-01 16:48 | XMS_ITS | Patient Health Record ---
Author Organization [facility] Address [address] [facility] [address] [place] [address] Care Team Providers Care Loss Prevention Lead Name Role Phone HARISH BLANK Unavailable [phone] Allergies Allergen (clinical drug ingredient) Drug/Non Drug [...] Problem Type II diabetes mellitus without complication (058766263) Type 2 diabetes mellitus without complications (E11.9) Active confirmed Problem Congenital valgus deformity of foot (disorder) (03414688) Pes planovalgus (Q66.51) Active confirmed Problem Congenital valgus deformity of foot (disorder) (62881115) Pes planovalgus (Q66.52) Active confirmed Plan Of Treatment No Information Insurance Providers Payer Name Payer Address Payer Phone Subscriber Number Group Number Insured Name Patient Relationship to Insured Coverage Start Date Coverage End Date [facility] [address] [place] [id number] BAILEY MORALES Self - patient is the insured 2 Medical (General) History Medical History History ICD Code diabetes mellitus hyperlipidemia Surgical History Surgery Date(Month/Year) gallbladder tonsillectomy hernia
--- OUTSIDE RECORDS SUMMARY | 2024-12-01 16:48 | XMS_ITS | Clinical Summary ---
Author Organization [facility] [address] [place] [address] [place] [phone] Phone Care Team Providers Care Direct Response Consultant Name Role Phone Lex Hutchins MD Primary Care Provider [phone] Allergies Active Allergy Reactions Criticality Noted Date [...] 09/18/2024 1:00 PM EDT Office Visit Endocrinology [address] [phone] Gia Barbour PA Type 2 diabetes mellitus with other specified complication, unspecified whether residential insulin use ([facility] V24, [facility] V28) (Primary Dx) from Last 3 Months Surgical History Surgery Date Site/Laterality Comments UMBILICAL HERNIA REPAIR PROCEDURE: LAP UMBILICAL HERNIA REPAIR; COMMENT: [facility] no complications CHOLECYSTECTOMY PROCEDURE: HISTORICAL CHOLECYSTECTOMY; COMMENT: about 30 yrs ago, [facility] TONSILLECTOMY PROCEDURE: HISTORICAL TONSILLECTOMY; COMMENT: 15 yrs old ADENOIDECTOMY PROCEDURE: HISTORICAL ADENOIDECTOMY Medical History Medical History Date Comments IBS (irritable bowel syndrome) D X:IBS (irritable bowel syndrome) Type 2 diabetes mellitus wit hout complications ([facility] V24, [facility] V28) DX:Type 2 horacio betes mellitus without complications ([facility]) Mild intermittent asthma, uncomplicated DX:Mild intermittent asthma, [...] 3:30 PM EST Office Visit Endocrinology - [place] [address] [place] [address] Gia Barbour PA [address] [place] [address] Health Maintenance Due Date Last Done Comments Breast Cancer Screening 1965 Colorectal Cancer Screening: Colonoscopy 1965 Diabetes: Annual Foot Exam 11/17/1973 Pneumococcal Vaccine: 50+ Years (1 of 2 - PCV) 11/17/1982 Cervical Cancer Screening: Pap Smear 11/17/1984 HIV Screening 01/30/2022 Hepatitis C Screening 01/30/2022 [...] mellitus with other specified complication, unspecified whether exterminator helper termite insulin use ([facility] V24, [facility] V28) BASIC METABOLIC PANEL Routine 09/18/2024 1:52 PM EDT Type 2 diabetes mellitus with other specified complication, unspecified whether residential insulin use ([facility] V24, [facility] V28) LIPID PANEL WITH REFLEX TO DIRECT LDL Routine 09/18/2024 1:52 PM EDT Type 2 diabetes mellitus with other specified complication, unspecified whether residential insulin use ([facility] V24, [facility] V28) MICROALBUMIN CREATININE URINE RATIO Routine 09/18/2024 1:52 PM EDT Type 2 diabetes mellitus with other specified complication, unspecified whether residential insulin use ([facility] V24, [facility] V28) POC GLUCOSE Routine 09/18/2024 1:14 PM EDT Type 2 diabetes mellitus with other specified complication, unspecified whether residential insulin use ([facility] V24, [facility] V28) from Last 3 Months Results * (ABNORMAL) Lipid panel with reflex to direct LDL (09/18/2024 1:52 PM EDT) Cholesterol 162 0 - 200 mg/dL LAB CHEMISTRY METHOD 09/18/2024 5:38 PM EDT [facility] Triglycerides 213(H) 0 - 150 mg/dL LAB CHEMISTRY METHOD 09/18/2024 5:38 PM EDT [facility] HDL 53 >=40 mg/dL LAB CHEMISTRY METHOD 09/18/2024 5:38 PM EDT [facility] LDL Calculated 66 0 - 100 mg/dL LAB CHEMISTRY METHOD 09/18/2024 5:38 PM EDT [facility] VLDL Cholesterol Danial 42.6 mg/dL LAB CHEMISTRY METHOD 09/18/2024 5:38 PM EDT [facility] Non HDL Chol. (LDL+VLDL) 109 <145 mg/dL LAB CHEMISTRY METHOD 09/18/2024 5:38 PM EDT [facility] Chol/HDL Ratio 3.1 0.0 - 4.4 LAB CHEMISTRY METHOD 09/18/2024 5:38 PM EDT [facility] Blood Venous blood specimen / Unknown Venipuncture / Unknown 09/18/2024 1:52 PM EDT 09/18/2024 1:52 PM EDT us Gia RODRIGES LAB BLOOD ORDERABLES Final Result [facility] [address] [place] [address], * Microalbumin creatinine urine ratio (09/18/2024 1:52 PM EDT) Creatinine, Urine 46.0 mg/dL LAB CHEMISTRY METHOD 09/18/2024 6:46 PM EDT [facility] Microalb, Ur <5.0 0.0 - 29.0 mg/L LAB CHEMISTRY METHOD 09/18/2024 6:46 PM EDT [facility] Microalb/Creat Ratio <11 <30 mg/g creat LAB CHEMISTRY METHOD 09/18/2024 6:46 PM EDT [facility] Urine Urine specimen from urethra / Unknown Non-blood Collection / Unknown 09/18/2024 1:52 PM EDT 09/18/2024 1:52 PM EDT Gia RODRIGES LAB URINE ORDERABLES Final Result Performing Organization Address [facility]/ZIP Co de Phone Number [facility] [address] [place] [address], [place] [phone] * (ABNORMAL) Hemoglobin A1c (09/18/2024 1:52 PM EDT) Hemoglobin A1C 6.9(H) <6.5 % LAB CHEMISTRY METHOD 09/18/2024 10:52 PM EDT [facility] Mean Bld Glu Estim. 151 mg/dL LAB CHEMISTRY METHOD 09/18/2024 10:52 PM EDT [facility] Blood Venous blood specimen / Unknown Venipuncture / Unknown 09/18/2024 1:52 PM EDT 09/18/2024 1:52 PM EDT Gia RODRIGES LAB BLOOD ORDERABLES Final Result [facility] [address] [place] [address], [place] [phone] * (ABNORMAL) Basic metabolic panel (09/18/2024 1:52 PM EDT) Sodium 139 133 - 145 mmol/L LAB CHEMISTRY METHOD 09/18/2024 5:36 PM [facility] Potassium 4.0 3.5 - 5.5 mmol/L LAB CHEMISTRY METHOD 09/18/2024 5:36 PM [facility] Chloride 102 96 - 110 mmol/L LAB CHEMISTRY METHOD 09/18/2024 5:36 PM [facility] CO2 32 21 - 32 mmol/L LAB CHEMISTRY METHOD 09/18/2024 5:36 PM [facility] Anion Gap 5 3 - 11 LAB CHEMISTRY METHOD 09/18/2024 5:36 PM [facility] Glucose 126(H) 70 - 100 mg/dL LAB CHEMISTRY METHOD 09/18/2024 5:36 PM [facility] BUN 22 5 - 25 mg/dL LAB CHEMISTRY METHOD 09/18/2024 5:36 PM [facility] Creatinine 0.88 0.50 - 1.10 mg/dL LAB CHEMISTRY METHOD 09/18/2024 5:36 PM [facility] eGFR 75 >=60 mL/min/1. 73m2 LAB CHEMISTRY METHOD 09/18/2024 5:36 PM [facility] Comment:Calculation based on the Chronic Kidney Disease Epidemiology Collaboration (CKD-EPI) equation refit without adjustment for race. BUN/Creatinine Ratio 25.0 LAB CHEMISTRY METHOD 09/18/2024 5:36 PM [facility] Calcium 9.5 8.5 - 10.5 mg/dL LAB CHEMISTRY METHOD 09/18/2024 5:36 PM [facility] Blood Venous blood specimen / Unknown Venipuncture / Unknown 09/18/2024 1:52 PM EDT 09/18/2024 1:52 PM EDT us Gia RODRIGES LAB BLOOD ORDERABLES Final Result [facility] [address] [place] [address], [place] [phone] * POC glucose manually resulted (09/18/2024 1:14 PM EDT) Glucose POC 163 mg/dL Comment:non fasting Blood Capillary blood specimen / Unknown 09/18/2024 1:14 PM EDT us Gia RODRIGES POINT OF CARE TEST ENTER/ED IT ORDERABLES Final Result from Last 3 Months Insurance [facility] [address] [place] [address] Care Teams Direct Response Consultant Relationship Specialty Start Date End Date Lex Hutchins MD [address] [place] [phone] PCP - General Internal Medicine 09/18/24
--- OUTSIDE RECORDS SUMMARY | 2024-12-01 16:48 | XMS_ITS | Patient Health Record ---
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 Problems Problem Type SNOMED Code ICD Code Onset Dates Problem Status W/U Status Risk Notes Problem Vitamin D deficiency (03577315) Vitamin D deficiency, unspecified (E55.9) Active confirmed Problem Diabetes mellitus screening (301366805) Encounter for screening for diabetes mellitus (Z13.1) Active confirmed Problem Endocrine/metaboli c screening (986723662) Encounter for screening for other suspected endocrine disorder (Z13.29) Active confirmed Problem Annual health maintenance examination (46327019) Annual physical exam (Z00.00) Active confirmed Problem Seasonal allergy (419409083) Seasonal allergies (J30.2) Active confirmed Problem Type II diabetes mellitus without complication (548667115) Type 2 diabetes mellitus without complication, unspecified whether terminal carman insulin use (E11.9) Active confirmed Problem Mixed hyperlipidemia (117577583) Hyperlipidemia, mixed (E78.2) Active confirmed Problem Asthma (678356246) Asthma (J45.909) Active confirmed Problem Lipid screening (203064800) Lipid screening (Z13.220) Active confirmed Encounters Encounter Location Date Provider Diagnosis [facility] [address] [place] [address] 10/21/2024 URSZULA LONG Plan Of Treatment Pending Test Test Name Order Date LIPID PANEL, STANDARD 05/15/2023 MICROALBUMIN, RANDOM URINE (W/CREATININE ) 05/15/2023 COMPREHENSIVE METABOLIC PANEL 05/15/2023 CBC (INCLUDES DIFF/PLT) 05/15/2023 INSULIN 05/15/2023 TSH 05/15/2023 VITAMIN D,25-OH,TOTAL,IA 05/15/2023 Insurance Providers Payer Name Payer Address Payer Phone Subscriber Number Group Number Insured Name Patient Relationship to Insured Coverage Start Date Coverage End Date [facility] [address] [place] [address] [id number] [employer] Self - patient is the insured 2 Medical (General) History Medical History History ICD Code Diabetes mellitus without complication E 11.9 Pneumonia, unspecified organism J18.9 Asthma J45.909 Gallbladder disease K82.9 Seasonal allergies J30.2 Surgical History Surgery Date(Month/Year) tonsillectomy Gallbladder Removal hernia repairs
--- OUTSIDE RECORDS SUMMARY | 2024-12-01 16:48 | XMS_ITS | Patient Health Record ---
Author Organization [facility] Address [address] [place] [address] Care Team Providers Care Eap Clinician Name Role Phone Tae Schulz MD Primary Care Provider Unavail able JusticeSharath ray Unavailable [phone] Allergies Allergen (clinical drug ingredient) Drug/Non Drug [...] Problem Type II diabetes mellitus without complication (197060035) Type 2 diabetes mellitus without complications (E11.9) Active confirmed Plan Of Treatment No Information Insurance Providers Payer Name Payer Address Payer Phone Subscriber Number Group Number Insured Name Patient Relationship to Insured Coverage Start Date Coverage End Date Cigna [address] [place] [phone] [id number] Adry Verde Self - patient is the insured Medical (General) History Medical History History ICD Code asthma Back,Hip,and Knee pain Diabetic Gall bladder problems Raynauds syndrome chronic sinusitis Chicken pox Surgical History Surgery Date(Month/Year) gall bladder 1993
== END 2024-12-01 16:07 | disposition home or self-care (01) ==
LOC: HO.HPSW 15:32
PROVIDERS: PCP Internal Medicine; Visit Provider Nurse Practitioner Family
DX: J45.909 Unspecified asthma, uncomplicated (principal); I28.8 Other diseases of pulmonary vessels; R93.89 Abnormal findings on diagnostic imaging of other specified body structures
CPT/HCPCS: 99214